=== PATIENT | female | born 1935 | race Caucasian/White ===

== ENCOUNTER 2019-07-13 22:04 | Observation (INO) | payer MEDICARE, SELFPAY ==
--- NOTE | ~2019-07-13 | XR_ITS ---
EXAMINATION: XR chest 1V portable INDICATION: Cough TECHNIQUE: Portable AP chest at 2304 hours COMPARISON: None available FINDINGS: There is scarring in the lung apices. The lungs are free of acute opacities. There is no pl eural effusion or pneumothorax. The cardiomediastinal silhouette is normal for technique. IMPRESSION: 1. No acute cardiopulmonary abnormality. Reviewed, dictated and finalized at location A.
--- NOTE | ~2019-07-13 | CT_ITS ---
EXAMINATION: CT brain wo con INDICATION: Headache COMPARISON: None TECHNIQUE: Standard unenhanced head CT. The dose-length product (DLP) was 681.00 mGy-cm. The mA was a djusted according to patient size. Iterative reconstruction technique was employed. FINDINGS: There is no acute intraparenchymal hemorrhage. No evidence of mass lesion. No evidence of a cute infarction. 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 There is mild periventricular and subcortical hypodensity probably related to small vessel ischemic disease. There is mild prominence o f the sulci and ventricles related to cerebral atrophy. Intracranial calcified cerebral atheroscleros is is noted. There are no extra-axial collections. There is no mass effect or midline shift. The orbi ts and soft tissues are unremarkable. The visualized sinuses and mastoid air cells are well aerated. Fibers seen of the posterior C1 ring is incidentally noted. IMPRESSION: 1. Areas of prior infarction without acute intracranial abnormality. 2. Age related findings. Reviewed, dictated and finalized at location A.
[2019-07-13 22:20] VITALS: BP 133/63; PULSE 80; RESP 20; TEMP 38.6; O2SAT 96
--- NOTE | 2019-07-13 22:25 | ECG_ITS ---
Measurements Intervals [place] Rate: 78 P: 58 [place]: 134 QRS: 28 QRSD: 83 T: 9 QT: 392 QTc: 447 Interpretive Statements SINUS RHYTHM WITH MARKED SINUS ARRHYTHMIA NONSPECIFIC T-WAVE ABNORMALITY- INFERIOR LEADS BASELINE ARTIFACT- I, II, III, AVR, AVL, V1, V3 BORDERLINE ECG Electronically Signed On 07-14-2019 7:07:19 CDT by Ronald Lyon D.O.
--- NOTE | 2019-07-13 22:34 | ED.WEAKNESS ---
HPI - Weakness General Chief complaint: Weakness Stated complaint: weak Time Seen by Provider: 07/13/19 22:20 Source: RN notes reviewed History of Present Illness HPI Narrative: Patient presents emergency department from home for weakness. Patient states that she was feeling fine until approximately 2:30 PM this afternoon when she began to feel really cold. States that following that she began to have weakness and was having difficulty getting out of her lazy boy. States that later she went out to check her crook and fell outside but denies any injury. She denies having any known fevers or chills at home rhinorrhea sore throat cough chest pain abdominal pain nausea vomiting diarrhea or any other symptoms. Related Data Allergies Allergy/AdvReac Type Severity Reaction Status Date / Time acetaminophen Allergy Severe NERVOUSNESS Verified 07/13/19 22:25 Review of Systems Review of Systems: Narrative: Gen.: Denies fevers or chills Eyes: Denies eye pain or visual change ENT: Denies congestion Respiratory: Denies shortness of breath or cough CV: Denies chest pain or palpitations GI: Denies abdominal pain nausea, emesis or diarrhea denies burning, urgency, frequency or hematuria Musculoskeletal: Denies back pain or muscle pain Neuro: Denies numbness, tingling, reports weakness Skin: Denies rash Except as documented, all other systems reviewed and negative [facility] Past Medical History Medical History (Updated 07/14/19 @ 01:16 by Chacho Garcia DO) Patient denies significant medical history Social History Social History (Updated 07/13/19 @ 22:35 by Chacho Garcia DO) Smoking status: Never smoker Gender identity (if verbalized by the patient): Female Exam Narrative: Exam Narrative: APPEARANCE: No acute distress, nontoxic, resting in bed EYES: EOMI HEENT: Normocephalic, atraumatic, OMM RESPIRATORY: No respiratory distress Clear to auscultation bilaterally with no rhonchi wheezing or rales. CARDIOVASCULAR: Regular rate and rhythm without murmurs rubs or gallops. ABDOMINAL: Soft, nontender, nondistended, no rebound or guarding MUSCULOSKELETAl: Moves all extremities. No clubbing, cyanosis or edema. NEURO: Awake and alert x 3. Following commands, speech normal, no focal deficits SKIN:: Warm, dry. No rashes lesions or abrasions PSYCHIATRIC: Normal affect/mood, Course Course Emergency Course: Discussed with patient current fever. She states she cannot take Tylenol or ibuprofen. States the only thing she can take for fever is aspirin Discussed with Dr. Alvarez presentation and work-up. Agrees with admission at this time Discussed with patient and family results of workup and diagnosis. Discussed need for admission. Patient and family understand and agree to current treatment plan Vital Signs Vital signs: Vital Signs Temperature 101.4 F H 07/13/19 22:20 Pulse Rate 80 07/13/19 22:20 Respiratory Rate 20 07/13/19 22:20 Blood Pressure 133/63 07/13/19 22:20 Pulse Oximetry 96 07/13/19 22:20 Temperature 98.1 F 07/14/19 00:24 Pulse Rate 76 07/14/19 00:24 Respiratory Rate 20 07/14/19 00:24 Blood Pressure 101/45 L 07/14/19 00:24 Pulse Oximetry 97 07/14/19 00:24 MDM - Weakness Lab Data Result diagrams: 07/13/19 22:41 07/13/19 22:41 Labs: Lab Results 07/13/19 07/13/19 07/13/19 Range/Units 22:39 22:41 22:41 WBC 13.0 H (4.5-10.0) K/mm3 RBC 3.90 L (4.2-5.4) M/mm3 Hgb 11.3 L (12.0-15.0) g/dL Hct 34.8 L (37.0-47.0) % MCV 89.2 (80-100) fl MCH 29.0 (26-34) pg MCHC 32.5 (32-36) g/dl RDW 14.2 (11.5-14.5) % Plt Count 205 (150-375) k/mm3 MPV 9.7 (7.4-10.4) fl Immature Gran % (Auto) 0.5 (0-0.5) % Neut % (Auto) 89.6 H (45.5-73.1) % Lymph % (Auto) 3.2 L (18.3-44.2) % [place] % (Auto) 6.5 (2.6-8.5) % Eos % (Auto) 0.0 (0-4.4) % Baso % (Auto) 0.2 (0.2-1.2) % Lymph # (Auto) 0.42
[2019-07-13 22:47] LABS: Basophils Percent Auto 0.2 % (0.2-1.2); Hematocrit 34.8 % (37.0-47.0); Hemoglobin 11.3 g/dL (12.0-15.0); Immature Granulocyte Absolute 0.07 K/mm3 (0.00-0.031); Immature Granulocyte Percent A 0.5 % (0-0.5); Lymphocytes Absolute Auto 0.42 K/mm3 (0.9-3.2); Lymphocytes Percent Auto 3.2 % (18.3-44.2); Mean Corpuscular HGB Conc 32.5 g/dl (32-36); Mean Corpuscular Volume 89.2 fl (80-100); Mean Platelet Volume 9.7 fl (7.4-10.4); Monocytes Absolute Auto 0.9 K/mm3 (0.1-0.6); Monocytes Percent Auto 6.5 % (2.6-8.5); Neutrophils Absolute Auto 11.7 K/mm3 (1.3-6.7); Neutrophils Percent Auto 89.6 % (45.5-73.1); Platelet Count Result 205 k/mm3 (150-375); Red Cell Distribution Width 14.2 % (11.5-14.5)
[2019-07-13 22:57] LABS: Prothrombin Time 13.3 Seconds (11.1-14.7)
[2019-07-13 22:58] LABS: Alanine Aminotransferase 14 U/L (4-35); Albumin Level 3.9 g/dL (3.5-5.1); Alkaline Phosphatase 100 U/L (38-126); Aspartate Amino Transferase 26 U/L (14-36); Bilirubin,Total 0.4 mg/dL (0.2-1.3); Blood Urea Nitrogen 18 mg/dL (7-17); Calcium 8.7 mg/dL (8.4-10.2); Carbon Dioxide 25 mmol/L (22-30); Chloride 104 mmol/L (98-107); Estimated CRCL calculation 36 ml/min; Estimated Glomerular Filt Rate 60; Glucose 139 mg/dL (65-105); Potassium 3.4 mmol/L (3.4-5.0); Sodium 134 mmol/L (137-145)
[2019-07-13 22:58] LABS: Partial Thromboplastin Time 26.4 SECONDS (22.3-36.8)
--- NOTE | 2019-07-13 23:09 | PC.NURSE ---
Patient in radiology.
[2019-07-13] MEDS: ASPIRIN 81 MG CHEWABLE TABLET 324 MG PO (23:12)
--- NOTE | 2019-07-13 23:34 | PC.NURSE ---
Patient aware of need for urine specimen, patient refusing straight cath at this time.
[2019-07-13 23:40] LABS: Lactic Acid Reflex 0.9 mmol/L (0.7-2.1)
[2019-07-14 00:24] VITALS: BP 101/45; PULSE 76; RESP 20; TEMP 36.7; O2SAT 97
[2019-07-14] MEDS: SODIUM CHLORIDE 0.9% IV 1,000 ML 999 ML IV CONT (00:25)
[2019-07-14 00:46] LABS: Add Urine Microscopic? YES; Appearance Urine Cloudy (Clear); Bacteria Urine 4+ /hpf; Bilirubin Urine Negative (Negative); Blood Urine 3+ (Negative); Color Urine Yellow (Yellow); Glucose Urine UA Negative (Negative); Ketones Urine Trace mg/dL (Negative); Leukocyte Esterase Ur 2+ LEU/UL (Negative); Mucus Urine Few /lpf; Nitrate Urine Positive (Negative); Protein Urine 1+ mg/dL (Negative); Squamous Epithelial Cell Urine Many /hpf (Few); Urobilinogen Urine Negative mg/dL (<2.0); WBC Urine 31-50 /hpf
[2019-07-14 01:59] VITALS: BP 116/69; PULSE 75; RESP 20; TEMP 36.7; O2SAT 96
[2019-07-14 02:05] VITALS: BP 111/54; PULSE 71; RESP 18; TEMP 36.7; O2SAT 95; BMI 19.9
--- NOTE | 2019-07-14 02:05 | ADMGEN ---
This patient, Cathy Mcgee, was admitted to 3 [facility] Surg Room 300-01. Patient/family oriented to hospital policies and general routines including ID bracelet, bed and alarms, visiting hours, pain management, procedures, bathroom and other care routines, personal items, smoking policy, room service/diet, and visiting hours. Valuables list has been completed. Information on how to activate the Rapid Response Team has been discussed. Patient/Family are encouraged to report perceived risks to care and to ask questions if they do not understand what they are told or what they should do.
[2019-07-14] MEDS: SODIUM CHLORIDE 0.9% IV 1,000 ML 100 ML IV CONT (02:14)
[2019-07-14 05:56] VITALS: BP 105/51; PULSE 85; RESP 18; TEMP 36.9; O2SAT 97
[2019-07-14 08:36] LABS: Basophils Percent Auto 0.1 % (0.2-1.2); Hematocrit 31.5 % (37.0-47.0); Hemoglobin 10.2 g/dL (12.0-15.0); Immature Granulocyte Absolute 0.07 K/mm3 (0.00-0.031); Immature Granulocyte Percent A 0.7 % (0-0.5); Lymphocytes Absolute Auto 0.59 K/mm3 (0.9-3.2); Lymphocytes Percent Auto 6.3 % (18.3-44.2); Mean Corpuscular HGB Conc 32.4 g/dl (32-36); Mean Corpuscular Hemoglobin 28.6 pg (26-34); Mean Corpuscular Volume 88.2 fl (80-100); Mean Platelet Volume 9.8 fl (7.4-10.4); Monocytes Absolute Auto 0.6 K/mm3 (0.1-0.6); Monocytes Percent Auto 6.5 % (2.6-8.5); Neutrophils Absolute Auto 8.1 K/mm3 (1.3-6.7); Neutrophils Percent Auto 86.4 % (45.5-73.1); Platelet Count Result 179 k/mm3 (150-375); Red Blood Count 3.57 M/mm3 (4.2-5.4); Red Cell Distribution Width 14.3 % (11.5-14.5); White Blood Count 9.4 K/mm3 (4.5-10.0)
[2019-07-14 08:55] LABS: Blood Urea Nitrogen 15 mg/dL (7-17); Calcium 7.8 mg/dL (8.4-10.2); Carbon Dioxide 24 mmol/L (22-30); Chloride 108 mmol/L (98-107); Estimated CRCL calculation 39 ml/min; Estimated Glomerular Filt Rate > 60; Glucose 92 mg/dL (65-105); Potassium 3.6 mmol/L (3.4-5.0); Sodium 136 mmol/L (137-145)
--- NOTE | 2019-07-14 09:23 | PM.IMHP ---
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 Patient states that she has been having difficulty getting out of her recliner starting at roughly 2:30 pm the day of presentation, stating she needed her and his cane for assistance. Later in the day, she reports adamantly that she did not fall, but was squatting while gardening, and slowly lowered onto her buttocks. She states her was concerned that he could not help her up which prompted him to take her to the ER. Denies any other recent falls. No reports of loss of consciousness; no acute injury from the fall. She states she merely lost her balance. She did report one episode of chills yesterday afternoon, but no reports of fever; in fact, she notes that her temperature was 90.2 yesterday while at home; she confirms this temperature reading when asked again. She denies any other complaints at the moment. In fact, patient is asking when she can go home, stating I feel fine . When specifically asked, denies current f/c/s, myalgias/arthralgias, headaches, dizziness, lightheadedness, changes in v/h, cp/palpitations, sob/cough, n/v/d/c, abd pain, changes in BMs, melena, BRBPR, dysuria, hematuria, cloudy urine, calf pain/swelling, one side arm/leg weakness, slurred speech, facial droop. While in the ER, UA showed cloudy urine, positive nitrates, 2+ leuk est, 31-50 WBC, 4+ bacteria, although showed many squamous epithelial cells. VS showed temp of 101.4, BP 133/63, HR 80, RR 20, and sat 96% RA. Initial CBC showed WBC of 13.0k. Patient being admitted under the setting of technically septic with temp of 101.4 and leukocytosis with UTI suspected source of infection. Review of Systems Review of Systems: All systems reviewed & are unremarkable except as noted in HPI and below PMFSH Past Medical History Medical History History of squamous cell carcinoma Patient denies significant medical history Surgical History Surgical History History of surgical removal of skin lesion Right knee; squamous cell carcinoma per patient Family History Family History Other Unknown family medical history Social History Social History (Updated 07/14/19 @ 17:18 by Kentrell Richard PA-C) Social History: Patient lives at home with , Amadeo, whom she designates as surrogate medical decision maker. Her PCP is Dr. Conte. She wishes to be listed as a Full Code Smoking packs per day: 0.25 Smoking cigarettes per day: 5.0 Years smoked: 66 Smoking pack-years: 16.50 Smoking status: Current some day smoker Tobacco type: cigarettes Second hand tobacco smoke exposure: Yes Alcohol intake: current Drinks per week: 1 Substance use: never Gender identity (if verbalized by the patient): Female Spiritual care concerns: No Meds Home Medications and Allergies Home Medications Medication Instructions Recorded Confirmed Type No Home Medications 07/14/19 07/14/19 History Allergies Allergy/AdvReac Type Severity Reaction Status Date / Time acetaminophen AdvReac Mild Shakiness Verified 07/14/19 02:20 ibuprofen AdvReac Mild Shakiness Verified 07/14/19 02:20 Vital Signs Vital Signs - 24 hr 07/13/19 22:20 07/14/19 00:24 07/14/19 01:59 Temperature 101.4 F H 98.1 F 98.1 F Pulse Rate 80 76 75 Respiratory Rate 20 20 20 Blood Pressure 133/63 101/45 L 116/69 Pulse Oximetry 96 97 96 07/14/19 02:05 07/14/19 05:56 Temperature 98.0 F 98.4 F Pulse Rate 71 85 Respiratory Rate 18 18 Blood Pressure 111/54 L 105/51 L Pulse Oximet
[2019-07-14] MEDS: SODIUM CHLORIDE 0.9% IV 1,000 ML 75 ML IV CONT (12:55)
[2019-07-14 14:41] VITALS: BP 120/45; PULSE 61; RESP 20; TEMP 38; O2SAT 96
[2019-07-14 22:00] VITALS: BP 118/41; PULSE 69; RESP 18; TEMP 37.4; O2SAT 94
[2019-07-15] MEDS: SODIUM CHLORIDE 0.9% IV 1,000 ML 75 ML IV CONT (05:50)
[2019-07-15 06:00] VITALS: BP 110/42; PULSE 63; RESP 18; TEMP 36.5; O2SAT 97
[2019-07-15 06:08] LABS: Basophils Percent Auto 0.4 % (0.2-1.2); Eosinophils Percent Auto 0.2 % (0-4.4); Hematocrit 30.3 % (37.0-47.0); Hemoglobin 9.6 g/dL (12.0-15.0); Immature Granulocyte Absolute 0.02 K/mm3 (0.00-0.031); Immature Granulocyte Percent A 0.4 % (0-0.5); Lymphocytes Absolute Auto 0.74 K/mm3 (0.9-3.2); Lymphocytes Percent Auto 15.3 % (18.3-44.2); Mean Corpuscular HGB Conc 31.7 g/dl (32-36); Mean Corpuscular Hemoglobin 28.1 pg (26-34); Mean Corpuscular Volume 88.6 fl (80-100); Mean Platelet Volume 10.7 fl (7.4-10.4); Monocytes Absolute Auto 0.4 K/mm3 (0.1-0.6); Monocytes Percent Auto 8.3 % (2.6-8.5); Neutrophils Absolute Auto 3.7 K/mm3 (1.3-6.7); Neutrophils Percent Auto 75.4 % (45.5-73.1); Platelet Count Result 146 k/mm3 (150-375); Red Blood Count 3.42 M/mm3 (4.2-5.4); Red Cell Distribution Width 14.4 % (11.5-14.5); White Blood Count 4.8 K/mm3 (4.5-10.0)
[2019-07-15 06:38] LABS: Blood Urea Nitrogen 14 mg/dL (7-17); Calcium 7.9 mg/dL (8.4-10.2); Carbon Dioxide 23 mmol/L (22-30); Chloride 109 mmol/L (98-107); Estimated CRCL calculation 39 ml/min; Estimated Glomerular Filt Rate > 60; Glucose 85 mg/dL (65-105); Potassium 3.4 mmol/L (3.4-5.0); Sodium 135 mmol/L (137-145)
[2019-07-15 07:11] LABS: Platelet Estimate Adequate (Adequate); Rouleaux 1+ (NORMAL)
[2019-07-15] MEDS: POTASSIUM CHLORIDE 20 MEQ TABLET 40 MEQ PO (09:36)
--- NOTE | 2019-07-15 11:34 | PM.DS ---
DS: Admitting Diagnosis Admitting Diagnosis Admitting Diagnosis: Sepsis, unspecified organism DS: Discharge Diagnosis Discharge Diagnosis (1) Sepsis: Code(s): A41.9 - Sepsis, unspecified organism Status: Acute Assessment and Plan: With temp of 101.4 and Leukocytosis of 13.0k upon arrival and UTI as suspected source. Lactic acid WNL. Patient states she is feeling much better today. BC negative to date x 2. UC growing E. Coli; sensitivities pending. Afebrile since 07/13; VSS. Treated underlying suspected infection of UTI with empiric Rocephin; will continue with Cefdinir 300 mg PO BID and follow cultures after discharge IVF d/c Patient adamantly refuses Tylenol and ibuprofen as she has had similar reactions of shakiness and almost hallucinating with both medications in the past. (2) Acute UTI: Code(s): N39.0 - Urinary tract infection, site not specified Status: Acute Assessment and Plan: UA suggestive of UTI although squamous epithelial cells noted. UC growing E. coli; sensitivities pending. Rocephin IV during stay x 2 doses Will give one dose cefdnir 300 mg now; continue BID after discharge through 07/16 to complete 5 days total antibiotics Monitor UC after discharge (3) Gait instability: Code(s): R26.81 - Unsteadiness on feet Status: Acute Assessment and Plan: Patient adamant she did not fall, but rather, slowly sat on ground and could not get up with the help of her . Does not report any injury. She has been having weakness since the day of presentation. She feels back to baseline. 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 Patient noted having difficulty getting out of her recliner earlier that day. She then later sustained a fall onto her buttock while gardening and was unable to get up with the assistance of her ; her then decided to bring her to the ER for further evaluation. In the ER, she was found to have UA suspicous for possible UTI and had temp of 101.4 and luekocytosis of 13.0k, technically meeting sepsis criteria and admitted under this setting. Please see H&P for further details Presenting VS: Temp Pulse Resp BP Pulse Ox 101.4 F H 80 20 133/63 96 07/13/19 22:20 07/13/19 22:20 07/13/19 22:20 07/13/19 22:20 07/13/19 22:20 Presenting Pertinent labs: WBC 13.0k (07/14: 4.8). Lactic acid 0.9. UA showed yellow, cloudy urine, 1+ protein, 3+ blood, positive nitrate, 2+ leuk esterace, 6-10 RBC, 31-50 WBC, many squam epith cells, 4+ bacteria, few mucus. Initial CBC, chemistry, UA otherwise unremarkable. Micro: BCx negative to date x 2. UC grew E. coli, pansensitive Imaging: Head CT 07/13/19 23:11 IMPRESSION: 1. Areas of prior infarction without acute intracranial abnormality. 2. Age related findings Chest X-Ray 07/13/19 23:15 IMPRESSION: 1. No acute cardiopulmonary abnormality. ECG: Interpretive Statements SINUS RHYTHM WITH MARKED SINUS ARRHYTHMIA NONSPECIFIC T-WAVE ABNORMALITY- INFERIOR LEADS BASELINE ARTIFACT- I, II, III, AVR, AVL, V1, V3 BORDERLINE ECG Patient was admitted to the hospitalist service for further evaluation for UTI and treatment for meeting sepsis criteria. Patient given IVF and was started on IV Rocephin. This was
[2019-07-15] MEDS: CEFDINIR 300 MG CAPSULE PO (13:18)
== END 2019-07-15 13:45 | disposition home or self-care (01) ==
LOC: ANHED 07-14 01:16 → ANH3MEDSUR 07-14 01:23
PROVIDERS: Admitting Provider Internal Medicine; Emergency Provider Emergency Medicine; PCP Family Medicine; Visit Provider Physician Assistant
DX: A41.9 Sepsis, unspecified organism (principal); N39.0 Urinary tract infection, site not specified; B96.20 Unspecified Escherichia coli [E. coli] as the cause of diseases classified elsewhere; R26.81 Unsteadiness on feet; Z85.828 Personal history of other malignant neoplasm of skin; Z86.73 Personal history of transient ischemic attack (TIA), and cerebral infarction without residual deficits; F17.210 Nicotine dependence, cigarettes, uncomplicated
CPT/HCPCS: 36415; 70450; 71045; 80048; 80053; 81001; 83605; 83735; 85025; 85610; 85730; 87040; 87077; 87086; 87088; 87186; 93005; 96361; 96365; 96366; 97110; 97161; 97165; 99285; A9270; G0378; J0696; J7030

== ENCOUNTER 2019-10-23 14:24 | Emergency (ER) | payer MEDICARE, SELFPAY ==
[2019-10-23 14:47] VITALS: BP 131/43; PULSE 84; RESP 20; TEMP 37.8; O2SAT 99
--- NOTE | 2019-10-23 14:52 | ED.FEMALEGU ---
HPI - Female Genitourinary General Chief complaint: Urogenital-Female Stated complaint: fever/shakes Source: patient Mode of arrival: wheelchair Limitations: no limitations History of Present Illness HPI Narrative: Patient is an 84-year-old female who presents with for complaints of possible UTI. Patient reports fever x1 day and increased weakness. Patient reports same symptoms as UTI in June. She reports urinary frequency, denies dysuria or hematuria. Patient's reports taking patient to [place] ED and reports leaving because of weight times. Patient is alert and oriented and in no acute distress at this time. MD elicited complaint: UTI Related Data Allergies Allergy/AdvReac Type Severity Reaction Status Date / Time acetaminophen AdvReac Mild Shakiness Verified 10/23/19 14:47 ibuprofen AdvReac Mild Shakiness Verified 10/23/19 14:47 Review of Systems Review of Systems: Narrative: CONSTITUTIONAL: Reports fever, denies chills or sweats. EYES: Denies visual changes, redness, or discharge. ENT: Denies rhinorrhea, congestion, sore throat, or otalgia. CARDIOVASCULAR: Denies chest pain, palpitations, or edema. RESPIRATORY: Denies cough or dyspnea. GASTROINTESTINAL: Denies abdominal pain, nausea, vomiting, or diarrhea. GENITOURINARY: Denies dysuria or hematuria. Reports frequency SKIN: Denies rash or itching. MUSCULOSKELETAL: Denies back pain, joint pain, or myalgia. NEUROLOGIC: Denies headache, numbness, dizziness, or weakness. PSYCHIATRIC: Denies anxiety or depression. [facility] Past Medical History Medical History History of squamous cell carcinoma Patient denies significant medical history Surgical History Surgical History History of surgical removal of skin lesion Right knee; squamous cell carcinoma per patient Family History Family History Other Unknown family medical history Social History Social History Social History: Patient lives at home with , Amadeo, whom she designates as surrogate medical decision maker. Her PCP is Dr. Conte. She wishes to be listed as a Full Code Smoking packs per day: 0.25 Smoking cigarettes per day: 5.0 Years smoked: 66 Smoking pack-years: 16.50 Smoking status: Current some day smoker Tobacco type: cigarettes Second hand tobacco smoke exposure: Yes Alcohol intake: current Drinks per week: 1 Substance use: never Gender identity (if verbalized by the patient): Female Spiritual care concerns: No Exam Narrative: Exam Narrative: GENERAL: Well-appearing, well-nourished, and in no acute distress. HEAD: Normocephalic, atraumatic. EYES: EOMI. No redness or drainage. Conjunctiva are normal. ENT: Mucous membranes pink and moist. CHEST: No respiratory distress. Clear to auscultation. HEART: Regular rate and rhythm. No murmur appreciated. Normal peripheral pulses. EXTREMITIES: Normal range of motion. No edema. SKIN: Warm, dry, no rash. NEURO: No focal deficits. Alert and oriented x3. Gait steady. PSYCH: Normal affect. No signs of depression or anxiety. Course Vital Signs Vital signs: Vital Signs Temperature 37.8 C H 10/23/19 14:47 Pulse Rate 84 10/23/19 14:47 Respiratory Rate 10/23/19 14:47 Blood Pressure 131/43 L 10/23/19 14:47 Pulse Oximetry 99 10/23/19 14:47 Temperature 37.8 C H 10/23/19 14:47 Pulse Rate 84 10/23/19 14:47 Respiratory Rate 20 10/23/19 14:47 Blood Pressure 131/43 L 10/23/19 14:47 Pulse Oximetry 99 10/23/19 14:47 Reviewed. Patient has been instructed to follow-up with her PCP regarding her blood pressure. MDM - Female Genitourinary MDM Narrative Medical decision making narrative: Patient UA is positive for nitrates, blood and leukocytes. Patient has suspe
[2019-10-23 15:20] VITALS: TEMP 39.4
== END 2019-10-23 15:22 | disposition home or self-care (01) ==
PROVIDERS: Emergency Provider Nurse Practitioner; PCP Family Medicine
DX: N39.0 Urinary tract infection, site not specified (principal); F17.210 Nicotine dependence, cigarettes, uncomplicated; Z85.828 Personal history of other malignant neoplasm of skin
CPT/HCPCS: 81003; 87077; 87086; 87088; 87186; 99213; G0463

== ENCOUNTER 2019-10-23 16:02 | Observation (INO) | payer MEDICARE, SELFPAY ==
--- NOTE | ~2019-10-23 | CT_ITS ---
EXAMINATION: CT brain wo con DATE: 10/23/2019 17:39 INDICATION: Altered mental status. Confusion. TECHNIQUE: Computed tomography (CT) of the head was performed without intravenous contrast. The dose- length product was 756.67 mGy-cm. Automated exposure control and iterative reconstruction technique w ere employed. COMPARISON: CT dated 07/13/2019 FINDINGS: Generalized atrophy. 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 No ventriculomegaly or midline shift. No acute intracranial hemorrhage, infarction, mass or mass effect. Paranasal sinuse s and mastoids are pneumatized. IMPRESSION: 1. No acute intracranial abnormality. 2: Chronic age-related findings. Reviewed, dictated and finalized at location A.
--- NOTE | ~2019-10-23 | XR_ITS ---
EXAMINATION: XR chest 1V portable 10/23/2019 17:44 INDICATION: Weakness and UTI PROCEDURE: AP portable chest COMPARISON: 07/13/2019 FINDINGS: The lungs are clear. The lungs are hyperinflated which is consistent with, but not diagnost ic of chronic obstructive pulmonary disease. The cardiomediastinal silhouette is within normal limit s. There are no pleural effusions. There is no pneumothorax suspected. IMPRESSION: 1: NO ACUTE CARDIOPULMONARY DISEASE. Reviewed, dictated and finalized at location A.
--- NOTE | 2019-10-23 16:09 | ECG_ITS ---
Measurements Intervals [place] Rate: 80 P: 80 [place]: 130 QRS: 48 QRSD: 84 T: -47 QT: 375 QTc: 435 Interpretive Statements SINUS RHYTHM NONSPECIFIC ST & T-WAVE ABNORMALITY- INF/LAT LEADS BASELINE ARTIFACT- I, II, III, AVR, AVL, AVF, V1-V6 BORDERLINE ECG Electronically Signed On 10-24-2019 7:18:10 CDT by Ronald Lyon D.O.
[2019-10-23 16:16] VITALS: BP 143/70; PULSE 80; RESP 19; TEMP 37.8; O2SAT 96
--- NOTE | 2019-10-23 16:20 | ED.GENADULT ---
HPI - General Adult General Chief complaint: Urogenital-Female Stated complaint: gen weakness/fever Time Seen by Provider: 10/23/19 16:09 Source: RN notes reviewed History of Present Illness HPI narrative: Patient presents to emergency department from urgent care via EMS for weakness.. Patient states that this a.m. she began to feel weak and run a low-grade fever. Patient gone to the urgent care this afternoon was diagnosed with a UTI. When they got out of the car the patient was too weak to get into the car and EMS had been called. Patient did have a fever at the urgent care however she stated that she cannot take Tylenol or ibuprofen as she is allergic to both these not receiving thing for fever. She denies any chest pain shortness of breath abdominal pain nausea vomiting or any other symptoms Related Data Allergies Allergy/AdvReac Type Severity Reaction Status Date / Time acetaminophen AdvReac Mild Shakiness Verified 10/23/19 14:47 ibuprofen AdvReac Mild Shakiness Verified 10/23/19 14:47 Review of Systems Review of Systems: Narrative: Gen.: Reports fever Eyes: Denies eye pain or visual change ENT: Denies congestion Respiratory: Denies shortness of breath or cough CV: Denies chest pain or palpitations GI: Denies abdominal pain nausea, emesis or diarrhea reports diagnosis of UTI today Musculoskeletal: Denies back pain or muscle pain Neuro:eports weakness Skin: Denies rash Except as documented, all other systems reviewed and negative [facility] Past Medical History Medical History History of squamous cell carcinoma Patient denies significant medical history Social History Social History Social History: Patient lives at home with , Amadeo, whom she designates as surrogate medical decision maker. Her PCP is Dr. Conte. She wishes to be listed as a Full Code Smoking packs per day: 0.25 Smoking cigarettes per day: 5.0 Years smoked: 66 Smoking pack-years: 16.50 Smoking status: Current some day smoker Tobacco type: cigarettes Second hand tobacco smoke exposure: Yes Alcohol intake: current Drinks per week: 1 Substance use: never Gender identity (if verbalized by the patient): Female Spiritual care concerns: No Exam Narrative: Exam Narrative: APPEARANCE: No acute distress, nontoxic, resting in bed EYES: EOMI HEENT: Normocephalic, atraumatic, OMM RESPIRATORY: No respiratory distress Clear to auscultation bilaterally with no rhonchi wheezing or rales. CARDIOVASCULAR: Regular rate and rhythm without murmurs rubs or gallops. ABDOMINAL: Soft, nontender, nondistended, no rebound or guarding MUSCULOSKELETAl: Moves all extremities. No clubbing, cyanosis or edema. NEURO: Awake and alert x 3. Following commands, speech normal, no focal deficits SKIN:: Warm, dry. No rashes lesions or abrasions PSYCHIATRIC: Normal affect/mood, Course Course Emergency Course: Reviewed old records. The patient cannot take acetaminophen or ibuprofen but she cannot take aspirin for fever Reviewed records from urgent care with positive group at that time. Current UA does show positive nitrate. Suspect UTI at this time will treat with Rocephin Discussed with REA Hutchison for Dr. Ramsey presentation work-up. Agrees with admission at this time Discussed with patient and family results of workup and diagnosis. Discussed need for admission. Patient and family understand and agree to current treatment plan Vital Signs Vital signs: Vital Signs Temperature 100.1 F H 10/23/19 16:16 Pulse Rate 80 10/23/19 16:16 Respiratory Rate 19 10/23/19 16:16 Blood Pressure 143/70 H 10/23/19 16:16 Pulse Oximetry 96 10/23/19 16:16 Temperature 100.1 F H 10/23/19 16:16 Pulse Rate 86 10/23/19 17:46 Respiratory Rate 29 H 10/23/19 17:46 Blood Pressure 135/74 10/23/19 17:46 Pulse Oximetry 97 10/23/19 17:46
[2019-10-23 16:37] LABS: Hematocrit 37.1 % (37.0-47.0); Hemoglobin 12.1 g/dL (12.0-15.0); Mean Corpuscular HGB Conc 32.6 g/dl (32-36); Mean Corpuscular Hemoglobin 29.1 pg (26-34); Mean Corpuscular Volume 89.2 fl (80-100); Mean Platelet Volume 9.9 fl (7.4-10.4); Platelet Count Result 196 k/mm3 (150-375); Red Blood Count 4.16 M/mm3 (4.2-5.4); Red Cell Distribution Width 14.8 % (11.5-14.5); White Blood Count 12.3 K/mm3 (4.5-10.0)
[2019-10-23 16:49] LABS: Alanine Aminotransferase 22 U/L (4-35); Albumin Level 3.9 g/dL (3.5-5.1); Alkaline Phosphatase 86 U/L (38-126); Anion Gap 9 mmol/L (8-16); Aspartate Amino Transferase 31 U/L (14-36); Bilirubin,Total 0.2 mg/dL (0.2-1.3); Blood Urea Nitrogen 19 mg/dL (7-17); Calcium 8.5 mg/dL (8.4-10.2); Carbon Dioxide 25 mmol/L (22-30); Chloride 103 mmol/L (98-107); Estimated CRCL calculation 29 ml/min; Estimated Glomerular Filt Rate 53; Glucose 129 mg/dL (65-105); Lactic Acid Reflex 0.9 mmol/L (0.7-2.1); Potassium 4.2 mmol/L (3.4-5.0); Sodium 137 mmol/L (137-145)
[2019-10-23] MEDS: SODIUM CHLORIDE 0.9% IV 1,000 ML 999 ML IV CONT (16:58)
[2019-10-23] MEDS: ASPIRIN 81 MG CHEWABLE TABLET 324 MG PO (16:58)
[2019-10-23 17:00] LABS: Anisocytosis 2+ (NORMAL); Band Neutrophils Percent 18 % (0-6); Lymphocytes Absolute Manual 0.36 K/mm3 (1.1-4.5); Monocytes Absolute Manual 0.36 K/mm3 (0.1-0.90); Monocytes Percent Manual 3 % (3-9); Neutrophils Absolute Manual 11.56 K/mm3 (1.7-7.2); Neutrophils Percent Manual 76 % (46-73); Platelet Estimate Adequate (Adequate); Total Cells Counted 100
[2019-10-23 17:16] LABS: Add Urine Microscopic? YES; Appearance Urine Cloudy (Clear); Bilirubin Urine Negative (Negative); Blood Urine 1+ (Negative); Color Urine Yellow (Yellow); Glucose Urine UA Negative (Negative); Ketones Urine Negative (Negative); Leukocyte Esterase Ur Negative LEU/UL (Negative); Mucus Urine Rare /lpf; Nitrate Urine Positive (Negative); Protein Urine 1+ mg/dL (Negative); Squamous Epithelial Cell Urine Few /hpf (Few); WBC Urine 0-3 /hpf
[2019-10-23 17:46] VITALS: BP 135/74; PULSE 86; RESP 29; O2SAT 97
[2019-10-23 19:14] VITALS: BP 134/63; PULSE 75; RESP 23; O2SAT 96
--- NOTE | 2019-10-23 19:35 | ADMGEN ---
This patient, Cathy Mcgee, was admitted to Medical Room 342-01. Patient/family oriented to hospital policies and general routines including ID bracelet, bed and alarms, visiting hours, pain management, procedures, bathroom and other care routines, personal items, smoking policy, room service/diet, and visiting hours. Valuables list has been completed. Information on how to activate the Rapid Response Team has been discussed. Patient/Family are encouraged to report perceived risks to care and to ask questions if they do not understand what they are told or what they should do.
[2019-10-23 19:40] VITALS: BMI 18.6
[2019-10-23] MEDS: SODIUM CHLORIDE 0.9% IV 1,000 ML 80 ML IV CONT (19:55)
[2019-10-23 21:59] VITALS: BP 119/67; PULSE 80; RESP 18; TEMP 37.1; O2SAT 96
[2019-10-24 01:26] VITALS: TEMP 38.4
[2019-10-24] MEDS: ASPIRIN 325 MG ENTERIC TABLET PO (02:24)
--- NOTE | 2019-10-24 03:15 | PM.IMHP ---
H&P: HPI History of Present Illness Date/Time: 10/24/19 03:15 Chief complaint: UTI/weakness/gait instability Narrative: This is an 84 year old female who presented to the hospital with a complaint of fever and weakness. The patient denies any cough, chest pain, shortness of breath, abdominal pain, dysuria, hematuria or other symptoms. She was referred to the hospital from urgent care after she was found to have a fever there. The patient was evaluated in the ER and urinalysis demonstrated nitrates+. She was started on Ceftriaxone IV for a presumed UTI. She has various excoriations and small wounds on her legs and back which she can't explain where they came from. She seems to be alert and oriented to person, place and time. She has no other complaints tonight. Review of Systems Review of Systems: All systems reviewed & are unremarkable except as noted in HPI and below PMFSH Past Medical History Medical History History of squamous cell carcinoma Patient denies significant medical history Surgical History Surgical History History of surgical removal of skin lesion Right knee; squamous cell carcinoma per patient Family History Family History Other Unknown family medical history Social History Social History Social History: Patient lives at home with , Amadeo, whom she designates as surrogate medical decision maker. Her PCP is Dr. Conte. She wishes to be listed as a Full Code Smoking packs per day: 0.25 Smoking cigarettes per day: 5.0 Years smoked: 66 Smoking pack-years: 16.50 Smoking status: Current every day smoker Tobacco type: cigarettes Second hand tobacco smoke exposure: Yes Alcohol intake: current Drinks per week: 1 Substance use: never Gender identity (if verbalized by the patient): Female Sexual Orientation (if Verbalized by the Patient): Straight or Heterosexual Spiritual care concerns: No Meds Home Medications and Allergies Home Medications Medication Instructions Recorded Confirmed Type No Home Medications 10/23/19 10/23/19 History Allergies Allergy/AdvReac Type Severity Reaction Status Date / Time acetaminophen AdvReac Mild Shakiness Verified 10/23/19 22:44 ibuprofen AdvReac Mild Shakiness Verified 10/23/19 22:44 Vital Signs Vital Signs - 24 hr 10/23/19 16:16 10/23/19 17:46 10/23/19 19:14 Temperature 37.8 C H Pulse Rate 80 86 75 Respiratory Rate 19 29 H 23 H Blood Pressure 143/70 H 135/74 134/63 Pulse Oximetry 96 97 96 10/23/19 21:59 10/24/19 01:26 Temperature 37.1 C 38.4 C H Pulse Rate 80 Respiratory Rate 18 Blood Pressure 119/67 Pulse Oximetry 96 Exam Const: General: cooperative, alert and awake Nutritional Appearance: thin Orientation/consciousness: patient oriented x3 HENMT: Head: normal to inspection General nose exam: Normal external nose present Face and sinus: normal facial exam Mouth: Yes Normal oral and palatal mucosa present and Yes oropharynx normal Eyes: Pupils: Equal, round and reactive pupils present EOM: EOMs intact bilaterally Neck: Neck: supple and no JVD Thyroid: thyroid normal Lymphatic: lymphadenopathy not noted Resp: Effort & Inspection: normal respiratory effort Auscultation: clear to auscultation bilaterally Cardio: Rate: regular rate Rhythm: regular rhythm Heart sounds: no murmurs GI: Inspection: normal to inspection Auscultation: normal bowel sounds Skin: General skin exam: erythema (Right ankle++ ) and excoriation (on legs and back++ ) Neuro: General: patient oriented x3 Cranial nerves: Yes CN's II-XII intact bilaterally and Yes Equal, round and reactive pupils present Speech: normal speech Motor exam (neuro): 5/5 motor strength present throughout Sensory Exam: no
[2019-10-24 06:00] VITALS: BP 106/44; PULSE 69; RESP 16; TEMP 36.9; O2SAT 96
[2019-10-24 06:19] LABS: Basophils Percent Auto 0.2 % (0.2-1.2); Hematocrit 32.5 % (37.0-47.0); Hemoglobin 10.6 g/dL (12.0-15.0); Immature Granulocyte Absolute 0.07 K/mm3 (0.00-0.031); Immature Granulocyte Percent A 0.7 % (0-0.5); Lymphocytes Absolute Auto 0.74 K/mm3 (0.9-3.2); Lymphocytes Percent Auto 7.1 % (18.3-44.2); Mean Corpuscular HGB Conc 32.6 g/dl (32-36); Mean Corpuscular Volume 88.8 fl (80-100); Mean Platelet Volume 10.6 fl (7.4-10.4); Monocytes Absolute Auto 0.5 K/mm3 (0.1-0.6); Monocytes Percent Auto 5.1 % (2.6-8.5); Neutrophils Absolute Auto 9.1 K/mm3 (1.3-6.7); Neutrophils Percent Auto 86.9 % (45.5-73.1); Platelet Count Result 166 k/mm3 (150-375); Red Blood Count 3.66 M/mm3 (4.2-5.4); White Blood Count 10.4 K/mm3 (4.5-10.0)
[2019-10-24 06:43] LABS: Anion Gap 5 mmol/L (8-16); Blood Urea Nitrogen 16 mg/dL (7-17); Calcium 7.8 mg/dL (8.4-10.2); Carbon Dioxide 23 mmol/L (22-30); Chloride 108 mmol/L (98-107); Estimated CRCL calculation 31 ml/min; Estimated Glomerular Filt Rate 53; Glucose 96 mg/dL (65-105); Potassium 3.4 mmol/L (3.4-5.0); Sodium 136 mmol/L (137-145)
[2019-10-24 08:00] VITALS: PULSE 69; RESP 16; O2SAT 96
[2019-10-24] MEDS: SODIUM CHLORIDE 0.9% IV 1,000 ML 80 ML IV CONT (08:52)
[2019-10-24] MEDS: POTASSIUM CHLORIDE 20 MEQ TABLET PO (08:52)
[2019-10-24 14:00] VITALS: BP 120/53; PULSE 67; RESP 16; TEMP 37.1; O2SAT 97
--- NOTE | 2019-10-24 15:57 | PM.DS ---
DS: Admitting Diagnosis Admitting Diagnosis Admitting Diagnosis: UTI/weakness/gait instability DS: Discharge Diagnosis Discharge Diagnosis (1) Abnormal urinalysis: Code(s): R82.90 - Unspecified abnormal findings in urine Status: Acute Assessment and Plan: Date of Service is 10/24/19 Ms. Mcgee is a pleasant 84yo F who presented to the ER for evaluation of generalized weakness. She described that earlier yesterday she went to urgent care for evaluation of urinary symptoms, was diagnosed with a UTI and was sent a prescription for antibiotics. Once she returned home, she was feeling very weak and EMS was activated. Tells me she did not fall or pass out. On arrival here, workup included CT brain which showed no acute intracranial findings and a chest XR with no acute cardiopulmonary findings. Routine labs demonstrated a mild leukocytosis, mild hyponatremia and hypocalcemia. Urine culture grew pansensitive E coli. PT/OT evaluations found her to have issues with balance. Home health or outpatient therapy was recommended, patient declined. After some discussion, she was agreeable to letting care coordination send referrals to home health for PT/OT. Patient was noted to have some healing/scabbed excoriations to her back and legs with no evidence of acute infection. She tells me these were from bug bites she sustained while trimming her [employer] le[employer]uga at home. The lesions are not painful or itchy. She was treated with IV rocephin and discharged with oral cefdinir to complete the course. She was hemodynamically stable for discharge and requesting discharge home on 10/23/29; instructed to follow up with PCP this week. (2) Weakness: Code(s): R53.1 - Weakness Status: Acute Assessment and Plan: May be related to acute UTI; age/debility certainly may be contributing. Home health PT/OT recommended and referrals sent; follow up with PCP. (3) Sepsis: Qualifiers: Sepsis acute organ dysfunction status: without acute organ dysfunction Sepsis type: sepsis due to unspecified organism Qualified Code(s): A41.9 - Sepsis, unspecified organism Code(s): A41.9 - Sepsis, unspecified organism Status: Acute Assessment and Plan: Evident on arrival by leukocytosis and fever. Suspected source is urinary. Vitals are stable. Urine culture grew E coli. DC with antibiotics; blood cultures pending at discharge and will follow until final. (4) Multiple excoriations: Code(s): T07.XXXA - Unspecified multiple injuries, initial encounter Status: Acute Assessment and Plan: Patient tells me these are old bug bites. No evidence of acute infection. They are not bothering her. Follow up PCP. DS: Summary Time Spent with Patient Time attestation: Total time spent providing and/or coordinating discharge services:40 minutes Exam Narrative: Exam Narrative: General: Elderly female resting sitting up in bed eating lunch in no acute distress. Requesting to discharge. HEENT: Normocephalic, EOMI, oral mucosa moist. Cardiovascular: Rate and rhythm are regular. Respiratory: Lungs clear to auscultation all pardo. Non-labored breathing. Abdomen: Soft, non-tender, non-distended, bowel sounds present. Extremities: Peripheral pulses intact. No edema. Neuro: Alert and oriented x 3. No focal neurological deficits. Speech is clear. Upper and lower extremity strength is equal bilaterally. Skin: Multiple healing, scabbed excoriations noted to patient's back and legs without s/s of acute infection. DS: Data Data Completed and Pending Labs on day of discharge: Last Vital Signs Temp 98.7 F 10/24/19 14:00 Pulse 67 10/24/19 14:00 Resp 16 10/24/19 14:00 BP 120/53 L 10/24/19 14:00 Pulse Ox 97 10/24/19 14:00 ITS Impress
--- NOTE | 2019-10-27 13:55 | PCCCNOTE ---
Received call from Neris, Mold Changer at [facility]. Per Neris she spoke with pt. this morning, 10/27/2019 and offered HH PT/OT services. Pt. declines the need for home health therapy, Neris then cancelled the HH referral.
== END 2019-10-24 17:40 | disposition home health service (06) ==
LOC: ANHED 18:15 → ANH3MED 18:49
PROVIDERS: Admitting Provider Internal Medicine; Emergency Provider Emergency Medicine; PCP Family Medicine; Visit Provider Family Medicine
DX: A41.9 Sepsis, unspecified organism (principal); R82.90 Unspecified abnormal findings in urine; T07.XXXA Unspecified multiple injuries, initial encounter; R53.1 Weakness; E87.1 Hypo-osmolality and hyponatremia; E83.51 Hypocalcemia; F17.210 Nicotine dependence, cigarettes, uncomplicated; W57.XXXA Bitten or stung by nonvenomous insect and other nonvenomous arthropods, initial encounter
CPT/HCPCS: 36415; 51701; 70450; 71045; 80048; 80053; 81001; 81003; 83605; 85025; 87040; 87077; 87086; 87088; 87186; 93005; 96361; 96365; 97161; 97165; 99285; A9270; G0378; J0696; J7030

== ENCOUNTER 2019-12-28 19:45 | Inpatient (IN) | payer MEDICARE, SELFPAY ==
[2019-12-28] VITALS (18 sets, daily range): BP systolic 133–148; BP diastolic 51–72; PULSE 80–96; RESP 18–30; TEMP 38.2–38.6; O2SAT 91–97
--- NOTE | ~2019-12-28 | XR_ITS ---
EXAMINATION: XR chest 1V portable DATE: 12/28/2019 21:55 INDICATION: Syncope. TECHNIQUE: A single frontal view of the chest was obtained. COMPARISON: Chest single view 10/23/2019 FINDINGS: There is mild scarring at the lung apices. No pleural effusion or pneumothorax. The heart s ize is normal. IMPRESSION: 1. Mild scarring at the lung apices. Reviewed, dictated and finalized at location A. ALL MECHANIC
--- NOTE | ~2019-12-28 | US_ITS ---
EXAMINATION: US venous doppler [facility] DATE: 01/01/2020 14:11 INDICATION: Lower limb swelling TECHNIQUE: Kendrick scale images without and with compression and Doppler images of the bilateral lower e xtremity veins were obtained. COMPARISON: None FINDINGS: The right common femoral vein, profunda femoral vein, femoral vein, popliteal vein, peroneal trunk, p osterior tibial veins, and greater saphenous vein are patent. The left common femoral vein, profunda femoral vein, femoral vein, popliteal vein, peroneal trunk, po sterior tibial veins, and greater saphenous vein are patent. IMPRESSION: 1. Patent bilateral lower extremity veins. No evidence of deep venous thrombosis. Reviewed, dictated and finalized at location A. GER COMBINATION IMPRESSION: 1. Patent bilateral lower extremity veins. No evidence of deep venous thrombosi s.
--- NOTE | ~2019-12-28 | CT_ITS ---
EXAMINATION: CT brain wo con DATE: 12/28/2019 21:53 INDICATION: Syncope. TECHNIQUE: Computed tomography (CT) of the head was performed without intravenous contrast. The mA wa s adjusted according to patient size. Iterative reconstruction technique was employed. The dose-lengt h product was 681.00 mGy-cm. COMPARISON: Head CT 10/23/2019 FINDINGS: There is no intracranial hemorrhage, acute infarction, or abnormal intracranial mass lesion . The ventricles are normal in size. There are likely changes of ocular lens replacement surgeries. T he mastoid air cells are normal. There is mild mucosal thickening in the ethmoid sinuses. IMPRESSION: 1. Normal brain. Reviewed, dictated and finalized at location A. OCOMPOSITION KEYBOARD OPERATOR IMPRESSION: 1. Normal brain.
--- NOTE | 2019-12-28 19:51 | ECG_ITS ---
Measurements Intervals Evans Rate: 97 P: 59 PA: 125 QRS: 83 QRSD: 84 T: 56 QT: 359 QTc: 458 Interpretive Statements SINUS RHYTHM BASELINE ARTIFACT- I, II, III, AVR, AVL, AVF, V1-V6 NORMAL ECG Electronically Signed On 12-29-2019 6:16:04 [employer]OR [employer]ING by Ronald Lyon D.O.
--- NOTE | 2019-12-28 20:30 | PC.NURSE ---
patient here with possible UTI. s/p unwitnessed fall vs. syncopal episode. see triage notes. all history per patient's . patient alert and more oriented now per her spouse. assessments documented. EKG done. on monitoring engineer. SL inserted. patient and aware we will need urine specimen.
[2019-12-28 20:44] LABS: Basophils Percent Auto 0.2 % (0.2-1.2); Hematocrit 36.5 % (37.0-47.0); Hemoglobin 11.7 g/dL (12.0-15.0); Immature Granulocyte Absolute 0.13 K/mm3 (0.00-0.031); Immature Granulocyte Percent A 0.9 % (0-0.5); Lymphocytes Absolute Auto 0.51 K/mm3 (0.9-3.2); Lymphocytes Percent Auto 3.5 % (18.3-44.2); Mean Corpuscular HGB Conc 32.1 g/dl (32-36); Mean Corpuscular Volume 90.3 fl (80-100); Mean Platelet Volume 9.9 fl (7.4-10.4); Monocytes Absolute Auto 0.6 K/mm3 (0.1-0.6); Monocytes Percent Auto 3.9 % (2.6-8.5); Neutrophils Absolute Auto 13.5 K/mm3 (1.3-6.7); Neutrophils Percent Auto 91.5 % (45.5-73.1); Platelet Count Result 240 k/mm3 (150-375); Red Blood Count 4.04 M/mm3 (4.2-5.4); Red Cell Distribution Width 14.8 % (11.5-14.5); White Blood Count 14.8 K/mm3 (4.5-10.0)
[2019-12-28 20:56] LABS: Alanine Aminotransferase 30 U/L (4-35); Albumin Level 4.3 g/dL (3.5-5.1); Alkaline Phosphatase 100 U/L (38-126); Anion Gap 9 mmol/L (8-16); Aspartate Amino Transferase 35 U/L (14-36); Bilirubin,Total 0.4 mg/dL (0.2-1.3); Blood Urea Nitrogen 23 mg/dL (7-17); Carbon Dioxide 27 mmol/L (22-30); Chloride 104 mmol/L (98-107); Estimated CRCL calculation 31 ml/min; Estimated Glomerular Filt Rate 53; Glucose 111 mg/dL (65-105); Potassium 4.1 mmol/L (3.4-5.0); Sodium 140 mmol/L (137-145)
--- NOTE | 2019-12-28 21:11 | ED.GENADULT ---
HPI - General Adult General Chief complaint: Syncope Stated complaint: n/v, syncopal episode at home Time Seen by Provider: 12/28/19 20:56 Source: patient and family History of Present Illness HPI narrative: Patient is a 84 y/o female came in for possible syncope. states that he found her on laying the ground in the yard about 1-2 hours ago. She states that she does not recall how she got to the ground or how long she had been there. She denies any injury, but states that she was too weak to get up. She has no headache, neck pain, chest pain or abdominal pain. Related Data Home Medications Medication Instructions Recorded Confirmed No Home Medications 10/23/19 12/29/19 Allergies Allergy/AdvReac Type Severity Reaction Status Date / Time acetaminophen AdvReac Mild Shakiness Verified 12/29/19 01:21 ibuprofen AdvReac Mild Shakiness Verified 12/29/19 01:21 Review of Systems Constitutional: Constitutional: Denies chills, Denies fever(s), Denies headache(s) and Denies weakness Eyes: Eyes: Denies blurry vision ENT: Denies headache(s) and Denies neck pain Cardiovascular: Cardiovascular: Denies chest pain and Denies dyspnea Respiratory: Respiratory: Denies cough and Denies dyspnea Gastrointestinal: Gastrointestinal: Denies abdominal pain, Denies diarrhea, Denies nausea and Denies vomiting Genitourinary: Genitourinary: Denies hematuria and Denies dysuria Musculoskeletal: Musculoskeletal: Denies back pain and Denies neck pain Neurologic: Reports syncope, Denies headache(s) and Denies weakness [facility] Past Medical History Medical History (Updated 12/29/19 @ 11:20 by Mayra Alcantara MD) History of squamous cell carcinoma Patient denies significant medical history Surgical History Surgical History History of surgical removal of skin lesion Right knee; squamous cell carcinoma per patient Family History Family History (Updated 12/29/19 @ 10:54 by David Ramsey MD) Father , sudden at age 84 assumed to be cardiac Acute myocardial infarction Mother , be ceased at age 64 with breast cancer Breast cancer Other Unknown family medical history Social History Social History Social History: Patient lives at home with , Amadeo, whom she designates as surrogate medical decision maker. Her PCP is Dr. Conte. She wishes to be listed as a Full Code Smoking packs per day: 0.25 Smoking cigarettes per day: 5.0 Years smoked: 50 Smoking pack-years: 12.50 Smoking status: Current every day smoker Tobacco type: cigarettes Second hand tobacco smoke exposure: Yes Alcohol intake: current Drinks per week: 2 Substance use: never Gender identity (if verbalized by the patient): Female Spiritual care concerns: No Exam Const: General: no acute distress and well developed Nutritional Appearance: thin Orientation/consciousness: oriented to person, oriented to place, oriented to time and patient oriented x3 HENMT: Head: normocephalic Ears: external ears normal General nose exam: Normal external nose present Eyes: General: appearance normal, both eyes and all related structures Conjunctivae: conjunctivae normal Neck: Neck: normal visual inspection and full ROM Chest: Chest palpation & inspection: normal inspection of the chest and no tenderness Resp: Effort & Inspection: normal respiratory effort Auscultation: clear to auscultation bilaterally Cardio: Rate: regular rate Rhythm: regular rhythm GI: GI Palp: No abdominal tenderness and Yes Soft to palpation Skin: General skin exam: normal color and turgor normal Neuro: General: oriented to person, oriented to place, oriented to time and patient oriented x3 Cranial nerves: Yes CN's II-XII intact bilaterally Cognition (Neuro): normal cognition Speech: normal speech Motor exam (neuro): 5/[address]
[2019-12-28 21:49] LABS: Add Urine Microscopic? YES; Appearance Urine Clear (Clear); Bilirubin Urine Negative (Negative); Blood Urine 1+ (Negative); Color Urine Straw (Yellow); Glucose Urine UA Negative (Negative); Ketones Urine Trace mg/dL (Negative); Leukocyte Esterase Ur Negative LEU/UL (Negative); Mucus Urine Rare /lpf; Nitrate Urine Negative (Negative); Protein Urine Negative (Negative); Specific Grav Ur 1.015 (1.001-1.035); Squamous Epithelial Cell Urine Few /hpf (Few); Urobilinogen Urine Negative mg/dL (<2.0); WBC Urine 0-3 /hpf
[2019-12-28] MEDS: ASPIRIN 325 MG TABLET (22:32)
[2019-12-28 22:36] LABS: Lactic Acid Reflex 0.7 mmol/L (0.7-2.1)
--- NOTE | 2019-12-28 22:48 | PC.NURSE ---
provider in room. reviewed all test results with patient and spouse.
--- NOTE | 2019-12-28 23:05 | PC.NURSE ---
Assumed care of pt. at this time. Report from ROSAURA Moreira
[2019-12-29] VITALS (13 sets, daily range): BP systolic 102–136; BP diastolic 42–58; PULSE 68–100; RESP 18–28; TEMP 36.8–39.2; O2SAT 91–97; BMI 19.7; BMI 18.7
[2019-12-29] MEDS: SODIUM CHLORIDE 0.9% IV 1,000 ML 100 ML IV CONT (00:18)
--- NOTE | 2019-12-29 00:40 | PC.NURSE ---
This patient, Cathy Mcgee, was admitted to [facility] Room 323-01. Patient/family oriented to hospital policies and general routines including ID bracelet, bed and alarms, visiting hours, pain management, procedures, bathroom and other care routines, personal items, smoking policy, room service/diet, and visiting hours. Information on how to activate the Rapid Response Team has been discussed. Patient/Family are encouraged to report perceived risks to care and to ask questions if they do not understand what they are told or what they should do.
--- NOTE | 2019-12-29 02:50 | PC.NURSE ---
This nurse took pt temp at 0245, was 102.5 F. Call made to hospitalist Kim, stating patient allergies include tylenol and ibuprofen. Kim suggests cooling measures. This RN applied ice packs to grion, neck, and bilateral axilla of patient.
--- NOTE | 2019-12-29 10:45 | PM.IMHP ---
H&P: HPI History of Present Illness Date/Time: 12/29/19 10:45 Chief complaint: syncope, sirs Narrative: Date of visit 12/28 1015. Cathy Mcgee is a 84 year old healthy female who states while out walking in the yard yesterday evening she became weak collapsed and fell. She denies any trauma or loss of consciousness but states she was too weak to get. Her found her and brought her to the emergency room for evaluation. Initial evaluation here was unremarkable other than mild leukocytosis and she was admitted for observation for possible syncope. She had no warning, palpitations, or other symptomatology prior to falling and states she was only down for about 10 minutes. No history of syncope. Was last hospitalized here just over a month ago for urinary tract infection and altered mental status which she had also in June of 2019. She has had no fever, chills, cough, nausea, vomiting, or diarrhea. Appetite have been fine and no symptoms prior to the present illness. Review of Systems Review of Systems: Narrative: constitutional she said she had lost a couple lb over last 6 months no apparent reason with good appetite eye no double vision scotoma mouth no pharyngitis laryngitis pulmonary no shortness breath wheezing or cough CV no chest pain palpitation or pedal edema GI has above no melena hematochezia diarrhea constipation no dysuria no hematuria muscle skeletal occasional joint knee or back pain integument no skin breakdown or but she had had a area on right lower leg that had been irritated psych affect appropriate neuro as above no history of seizure either PMFSH Past Medical History Medical History (Updated 12/29/19 @ 11:20 by Mayra Alcantara MD) History of squamous cell carcinoma Patient denies significant medical history Surgical History Surgical History History of surgical removal of skin lesion Right knee; squamous cell carcinoma per patient Family History Family History (Updated 12/29/19 @ 10:54 by David Ramsey MD) Father , sudden at age 84 assumed to be cardiac Acute myocardial infarction Mother , be ceased at age 64 with breast cancer Breast cancer Other Unknown family medical history Social History Social History Social History: Patient lives at home with , Amadeo, whom she designates as surrogate medical decision maker. Her PCP is Dr. Conte. She wishes to be listed as a Full Code Smoking packs per day: 0.25 Smoking cigarettes per day: 5.0 Years smoked: 50 Smoking pack-years: 12.50 Smoking status: Current every day smoker Tobacco type: cigarettes Second hand tobacco smoke exposure: Yes Alcohol intake: current Drinks per week: 2 Substance use: never Gender identity (if verbalized by the patient): Female Spiritual care concerns: No Meds Home Medications and Allergies Home Medications Medication Instructions Recorded Confirmed Type No Home Medications 10/23/19 12/29/19 History Allergies Allergy/AdvReac Type Severity Reaction Status Date / Time acetaminophen AdvReac Mild Shakiness Verified 12/29/19 01:21 ibuprofen AdvReac Mild Shakiness Verified 12/29/19 01:21 Vital Signs Vital Signs - 24 hr 12/28/19 20:06 12/28/19 20:07 12/28/19 20:14 Temperature Pulse Rate 95 93 94 Respiratory Rate 23 H 18 22 H Blood Pressure 148/72 H 148/72 H Pulse Oximetry 91 96 12/28/19 20:15 12/28/19 20:16 12/28/19 20:17 Temperature Pulse Rate 94 95 94 Respiratory Rate 22 H 30 H 22 H Blood Pressure 141/67 H Pulse Oximetry 12/28/19 20:30 12/28/19 20:31 12/28/19 20:45 Temperature Pulse Rate 94 92 92 Respiratory Rate 20 21 H 24 H Blood Pressure 138/64 Pulse Oximetry 97 97 96 12/28/19 20:46 12/28/19 21:00 12/28/19 21:01 Temperature Pulse Rate 92 88 92 Respiratory Rate 1
[2019-12-29 11:21] LABS: Basophils Percent Auto 0.1 % (0.2-1.2); Hematocrit 35.2 % (37.0-47.0); Hemoglobin 11.4 g/dL (12.0-15.0); Immature Granulocyte Absolute 0.12 K/mm3 (0.00-0.031); Immature Granulocyte Percent A 0.9 % (0-0.5); Lymphocytes Absolute Auto 0.47 K/mm3 (0.9-3.2); Lymphocytes Percent Auto 3.3 % (18.3-44.2); Mean Corpuscular HGB Conc 32.4 g/dl (32-36); Mean Corpuscular Hemoglobin 28.8 pg (26-34); Mean Corpuscular Volume 88.9 fl (80-100); Mean Platelet Volume 9.9 fl (7.4-10.4); Monocytes Absolute Auto 0.3 K/mm3 (0.1-0.6); Monocytes Percent Auto 2.2 % (2.6-8.5); Neutrophils Absolute Auto 13.1 K/mm3 (1.3-6.7); Neutrophils Percent Auto 93.5 % (45.5-73.1); Platelet Count Result 190 k/mm3 (150-375); Red Blood Count 3.96 M/mm3 (4.2-5.4); Red Cell Distribution Width 14.6 % (11.5-14.5); White Blood Count 14.1 K/mm3 (4.5-10.0)
[2019-12-29 11:31] LABS: Anion Gap 7 mmol/L (8-16); Blood Urea Nitrogen 17 mg/dL (7-17); Calcium 8.5 mg/dL (8.4-10.2); Carbon Dioxide 25 mmol/L (22-30); Chloride 105 mmol/L (98-107); Estimated CRCL calculation 35 ml/min; Estimated Glomerular Filt Rate 60; Glucose 105 mg/dL (65-105); Potassium 3.7 mmol/L (3.4-5.0); Sodium 137 mmol/L (137-145)
[2019-12-29 12:23] LABS: Creatine Kinase 5860 U/L (30-135)
[2019-12-29] MEDS: EUCERIN CREAM 120 GM JAR 1 APPLIC TOPICAL (12:33)
[2019-12-29] MEDS: ENOXAPARIN 40 MG/0.4 ML SYRINGE SUB-Q (12:33)
[2019-12-29] MEDS: ASPIRIN 325 MG TABLET PO ×2 (12:33→21:34)
[2019-12-29] MEDS: SODIUM CHLORIDE 0.9% IV 1,000 ML 125 ML IV CONT (16:34)
[2019-12-30] VITALS (9 sets, daily range): BP systolic 107–122; BP diastolic 41–63; PULSE 55–74; RESP 16–20; TEMP 36.6–37.1; O2SAT 96–100
[2019-12-30] MEDS: SODIUM CHLORIDE 0.9% IV 1,000 ML 125 ML IV CONT ×3 (01:34→21:32)
[2019-12-30 06:29] LABS: Basophils Percent Auto 0.2 % (0.2-1.2); Eosinophils Percent Auto 0.1 % (0-4.4); Hematocrit 31.2 % (37.0-47.0); Hemoglobin 10.2 g/dL (12.0-15.0); Immature Granulocyte Absolute 0.07 K/mm3 (0.00-0.031); Immature Granulocyte Percent A 0.8 % (0-0.5); Lymphocytes Percent Auto 9.7 % (18.3-44.2); Mean Corpuscular HGB Conc 32.7 g/dl (32-36); Mean Corpuscular Hemoglobin 29.2 pg (26-34); Mean Corpuscular Volume 89.4 fl (80-100); Monocytes Absolute Auto 0.6 K/mm3 (0.1-0.6); Monocytes Percent Auto 6.5 % (2.6-8.5); Neutrophils Absolute Auto 7.7 K/mm3 (1.3-6.7); Neutrophils Percent Auto 82.7 % (45.5-73.1); Platelet Count Result 150 k/mm3 (150-375); Red Blood Count 3.49 M/mm3 (4.2-5.4); White Blood Count 9.3 K/mm3 (4.5-10.0)
[2019-12-30 06:48] LABS: Anion Gap 5 mmol/L (8-16); Blood Urea Nitrogen 17 mg/dL (7-17); Calcium 7.9 mg/dL (8.4-10.2); Carbon Dioxide 23 mmol/L (22-30); Chloride 108 mmol/L (98-107); Estimated CRCL calculation 37 ml/min; Estimated Glomerular Filt Rate > 60; Glucose 90 mg/dL (65-105); Potassium 3.6 mmol/L (3.4-5.0); Sodium 136 mmol/L (137-145)
[2019-12-30 07:17] LABS: Creatine Kinase 6408 U/L (30-135)
[2019-12-30] MEDS: ENOXAPARIN 40 MG/0.4 ML SYRINGE SUB-Q (08:30)
[2019-12-30] MEDS: POTASSIUM CHLORIDE 20 MEQ TABLET 40 MEQ PO (08:31)
[2019-12-30] MEDS: EUCERIN CREAM 120 GM JAR 1 APPLIC TOPICAL (08:37)
--- NOTE | 2019-12-30 17:35 | PM.IMPN ---
Progress Note: A&P Assessment and Plan (1) Sepsis: Qualifiers: Sepsis acute organ dysfunction status: without acute organ dysfunction Sepsis type: sepsis due to unspecified organism Qualified Code(s): A41.9 - Sepsis, unspecified organism Code(s): A41.9 - Sepsis, unspecified organism Status: Acute Assessment and Plan: by criteria of leukocytosis and fever. Cellulitis appears to be source. Blood cultures so far negative and antibiotics started 12/28 with ceftriaxone WBC fell to normal today (2) Cellulitis and abscess of right leg: Code(s): L03.115 - Cellulitis of right lower limb; L02.415 - Cutaneous abscess of right lower limb Status: Acute Assessment and Plan: started ceftriaxone for probable strep cellulitis. white count normal today (3) Weakness: Code(s): R53.1 - Weakness Status: Acute Assessment and Plan: suspect secondary to the infection. No clear history of syncope but will continue secured entrance monitor and echocardiogram still not done (4) DVT prophylaxis: Code(s): Z29.9 - Encounter for prophylactic measures, unspecified Status: Acute Assessment and Plan: Lovenox Subjective Date/time seen: 12/30/19 17:35 Interval history: 84-year-old white female fell in the yd at home without apparent loss of consciousness after becoming weak. Shortly after arrival here spiked temp and had leukocytosis and found to have right leg cellulitis. She feels slightly better this a.m. with no fever and good appetite. Exam Narrative: Exam Narrative: blood pressure is 116/62 pulse is 60 and regular at present time she is afebrile with a T-max of 37.8? pupils equal reactive light sclera anicteric neck supple lungs clear CV regular rate rhythm no murmurs abdomen soft nontender no masses extremities without edema distal pulses are 2+ integument right leg below knee and just above the ankle extending to the foot there is some erythema and is warm but not tender. And less prominent than 1 day prior laterally on the calf there is some excoriated areas of dry scan that are slightly improved also neuro alert no focal deficits Objective Data Vital Signs Vital Signs: Vital Signs - 24 hr 12/29/19 20:00 12/29/19 21:30 12/30/19 00:00 Temperature 37.8 C H Pulse Rate 72 68 65 Respiratory Rate 20 Blood Pressure 110/55 L Pulse Oximetry 96 12/30/19 01:26 12/30/19 04:00 12/30/19 05:32 Temperature 36.8 C 37.1 C Pulse Rate 61 57 L 68 Respiratory Rate 20 16 Blood Pressure 110/50 L 107/41 L Pulse Oximetry 97 96 12/30/19 08:00 12/30/19 12:00 12/30/19 16:00 Temperature 36.9 C 36.6 C 36.7 C Pulse Rate 58 L 64 55 L Respiratory Rate 16 18 18 Blood Pressure 119/46 L 120/63 117/62 Pulse Oximetry 100 98 98 Intake/Output Intake/Output: Intake & Output 12/27/19 12/28/19 12/29/19 12/30/19 23:59 23:59 23:59 23:59 Intake Total 2540 3170 Output Total 800 Balance 2540 2370 Meds/Results Medications: Active Medications Generic Name Dose Route Start Last Admin Trade Name Freq PRN Reason Stop Dose Admin Aspirin 325 mg 12/29/19 10:40 12/29/19 21:34 Aspirin 325 Mg Tablet PO 325 mg Q6H PRN Administration Pain or Fever Enoxaparin Sodium 40 mg 12/29/19 10:45 12/30/19 08:30 Enoxaparin 40 Mg/0.4 Ml Syringe SUB-Q 40 mg DAILY WENDY Administration Ceftriaxone Sodium/Dextrose 1 gm in 50 mls @ 100 mls/hr 12/29/19 11:00 12/30/19 11:28 Rocephin 1 Gm/D5w 50 Ml IVPB Infused Q24H WENDY Infusion Sodium Chloride 1,000 mls @ 125 mls/hr 12/29/19 14:45 12/30/19 10:58 Normal Saline Iv IV CONT 125 mls/hr .Q8H WENDY Administration Multi-Ingred Cream/Lotion/Oil/Oint 1 applic 12/29/19 09:00 12/30/19 08:37 Eucerin Cream 120 Gm Jar TOPICAL 1 applic QAM WENDY Administration Radiology Results: ITS Impressions Head CT 12/28/19 21:55 IMPRESSION: 1. Normal brain. Ches
[2019-12-30 18:20] LABS: SARS-CoV-2 RNA PCR Negative
[2019-12-31] VITALS (9 sets, daily range): BP systolic 112–136; BP diastolic 56–61; PULSE 51–78; RESP 18; TEMP 36.5–37.1; O2SAT 94–99
--- NOTE | 2019-12-31 | ECHO_ITS ---
Patient Info Name: Cathy Mcgee Age: 84 years : 1935 Gender: Female Ht: 65 in Wt: 118 lbs BSA: 1.56 m2 HR: 61 bpm BP: 112 / 56 mmHg Technical Quality: Good Exam Date: 12/31/2019 11:36 AM Exam Location: [facility] Pulmonary Exam Room: 323 Patient Status: Inpatient Admit Date: 12/29/2019 Staff Ordering Physician: David Ramsey MD Teacher Learning Disabled: Keysha Ann RDCS Attending Provider: Rosalie Alvarez DO Referring Physician: Roxy FARAH; Exam Type: CA echo doppler color flow Study Info Indications - fall possible syncope Complete two-dimensional, color flow and Doppler transthoracic echocardiogram is performed. Summary 1. Complete two-dimensional, color flow and Doppler transthoracic echocardiogram is performed. 2. Left ventricular chamber dimension is mildly enlarged. 3. Left ventricular systolic function is normal, estimated at 60-65%. 4. There is mildly increased left ventricular wall thickness. 5. The left ventricular diastolic function is grade I diastolic dysfunction. 6. E/e' 8 is minimally elevated. 7. Left atrial chamber dimension is mildly enlarged. 8. Right atrial chamber dimension is mildly enlarged. 9. There is mild mitral valve regurgitation. 10. There is mild tricuspid valve regurgitation. 11. No pulmonary hypertension, estimated pulmonary arterial systolic pressure is 30 mmHg. 12. There is trace pulmonic regurgitation. 13. Small atheroma in posterior aortic root. Left Ventricle E/e' 8 is minimally elevated. Left ventricular chamber dimension is mildly enlarged. Left ventricular systolic function is normal, estimated at 60-65%. There is mildly increased left ventricular wall thickness. The left ventricular diastolic function is grade I diastolic dysfunction. Right Ventricle Right ventricular chamber dimension is normal. Right ventricular systolic function is normal. Left Atria Left atrial chamber dimension is mildly enlarged. Right Atria Right atrial chamber dimension is mildly enlarged. Aortic Valve The aortic valve is trileaflet. There is no aortic valve stenosis. There is no aortic valve regurgitation. Pulmonic Valve There is trace pulmonic regurgitation. Mitral Valve There is no mitral valve stenosis. There is mild mitral valve regurgitation. Tricuspid Valve There is mild tricuspid valve regurgitation. No pulmonary hypertension, estimated pulmonary arterial systolic pressure is 30 mmHg. Pericardium/Pleural There is no pericardial effusion. Inferior Vena Cava Normal inferior vena cava with >50% collapse upon inspiration consistent with normal right atrial pressure, 5 mmHg. Aorta Small atheroma in posterior aortic root. The aortic root size at the sinus of Valsalva is normal. Left Ventricular Outflow Tract Name Value Normal LVOT 2D LVOT Diameter 2.0 cm LVOT Doppler LVOT Peak Gradient 2 mmHg LVOT Mean Gradient 1 mmHg LVOT VTI 21 cm LVOT VTI/AV VTI Ratio 0.7 LVOT Stroke Volume
[2019-12-31] MEDS: SODIUM CHLORIDE 0.9% IV 1,000 ML 125 ML IV CONT ×3 (04:45→21:32)
[2019-12-31 06:40] LABS: Anion Gap 1 mmol/L (8-16); Blood Urea Nitrogen 13 mg/dL (7-17); Calcium 7.7 mg/dL (8.4-10.2); Carbon Dioxide 25 mmol/L (22-30); Chloride 112 mmol/L (98-107); Estimated CRCL calculation 42 ml/min; Estimated Glomerular Filt Rate > 60; Glucose 87 mg/dL (65-105); Potassium 3.6 mmol/L (3.4-5.0); Sodium 138 mmol/L (137-145)
[2019-12-31 07:11] LABS: Creatine Kinase 5817 U/L (30-135)
[2019-12-31] MEDS: POTASSIUM CHLORIDE 20 MEQ TABLET 40 MEQ PO (09:49)
[2019-12-31] MEDS: ENOXAPARIN 40 MG/0.4 ML SYRINGE SUB-Q (09:50)
[2019-12-31] MEDS: EUCERIN CREAM 120 GM JAR 1 APPLIC TOPICAL (09:51)
--- NOTE | 2019-12-31 11:39 | PM.IMPN ---
Progress Note: A&P Assessment and Plan (1) Sepsis: Qualifiers: Sepsis acute organ dysfunction status: without acute organ dysfunction Sepsis type: sepsis due to unspecified organism Qualified Code(s): A41.9 - Sepsis, unspecified organism Code(s): A41.9 - Sepsis, unspecified organism Status: Acute Assessment and Plan: by criteria of leukocytosis and fever. Cellulitis appears to be source. Blood cultures negative and antibiotics started 12/28 with ceftriaxone WBC fell to normal 12/29. probable d/c 12/31 (2) Cellulitis and abscess of right leg: Code(s): L03.115 - Cellulitis of right lower limb; L02.415 - Cutaneous abscess of right lower limb Status: Acute Assessment and Plan: started ceftriaxone for probable strep cellulitis. white count normal 12/29 and continue (3) Weakness: Code(s): R53.1 - Weakness Status: Acute Assessment and Plan: suspect secondary to the infection. No clear history of syncope but continue monitor worker and echocardiogram still not done (4) DVT prophylaxis: Code(s): Z29.9 - Encounter for prophylactic measures, unspecified Status: Acute Assessment and Plan: Lovenox Subjective Date/time seen: 12/31/19 11:39 Interval history: Date of visit 12/30 84-year-old white female fell in the yd at home without apparent loss of consciousness after becoming weak. Shortly after arrival here spiked temp and had leukocytosis and found to have right leg cellulitis. She feels slightly better this a.m. with no fever and good appetite., wants to go home Exam Narrative: Exam Narrative: blood pressure is 112/56 pulse is 60 and regular at present time she is afebrile last 48 hours pupils equal reactive light sclera anicteric neck supple lungs clear CV regular rate rhythm no murmurs abdomen soft nontender no masses extremities without edema distal pulses are 2+ integument right leg below knee and just above the ankle extending to the foot there is some residual mild erythema and slight warmth but not tender. And less prominent each day laterally on the calf there is some excoriated areas of dry skin that are improved also neuro alert no focal deficits Objective Data Vital Signs Vital Signs: Vital Signs - 24 hr 12/30/19 12:00 12/30/19 16:00 12/30/19 20:00 Temperature 36.6 C 36.7 C Pulse Rate 64 55 L 64 Respiratory Rate 18 18 Blood Pressure 120/63 117/62 Pulse Oximetry 98 98 12/30/19 21:57 12/31/19 00:00 12/31/19 04:00 Temperature 37.0 C Pulse Rate 74 53 L 51 L Respiratory Rate 18 Blood Pressure 122/52 L Pulse Oximetry 100 12/31/19 06:00 Temperature 37.1 C Pulse Rate 61 Respiratory Rate 18 Blood Pressure 112/56 L Pulse Oximetry 97 Intake/Output Intake/Output: Intake & Output 12/28/19 12/29/19 12/30/19 12/31/19 23:59 23:59 23:59 23:59 Intake Total 2540 4170 1240 Output Total 800 100 Balance 2540 3370 1140 Meds/Results Medications: Active Medications Generic Name Dose Route Start Last Admin Trade Name Freq PRN Reason Stop Dose Admin Aspirin 325 mg 12/29/19 10:40 12/29/19 21:34 Aspirin 325 Mg Tablet PO 325 mg Q6H PRN Administration Pain or Fever Enoxaparin Sodium 40 mg 12/29/19 10:45 12/31/19 09:50 Enoxaparin 40 Mg/0.4 Ml Syringe SUB-Q 40 mg DAILY WENDY Administration Ceftriaxone Sodium/Dextrose 1 gm in 50 mls @ 100 mls/hr 12/29/19 11:00 12/30/19 11:28 Rocephin 1 Gm/D5w 50 Ml IVPB Infused Q24H WENDY Infusion Sodium Chloride 1,000 mls @ 125 mls/hr 12/29/19 14:45 12/31/19 04:45 Normal Saline Iv IV CONT 125 mls/hr .Q8H WENDY Administration Multi-Ingred Cream/Lotion/Oil/Oint 1 applic 12/29/19 09:00 12/31/19 09:51 Eucerin Cream 120 Gm Jar TOPICAL 1 applic QAM WENDY Administration Radiology Results: ITS Impressions Head CT 12/28/19 21:55 IMPRESSION: 1. Normal brain. Chest X-Ray
--- NOTE | 2019-12-31 13:18 | PCDIET ---
Nutrition Follow-Up Complete: Inadequate oral intake r/t reduced appetite as evidence by wt loss and 93% of UBW PO intake of 75% of meals and supplements Goal: Goal met. Continue goal. Pt current nutrition is Heart Healthy + Ensure Compact Nutrition recommendation: agree Last recorded weight is 51.1 kg, down from 53.7kg Bowel Motility: no BM Labs Reviewed:Na 136 Meds Noted: normal saline, rocephin Additional Notes: Pt eating very well, 100%x last 4 meals. Drinking nutrition supplements for added nutrition. Denies trouble chewing or swallowing. We will continue to monitor for adequate intake every five days.
[2020-01-01] VITALS: PULSE 63
[2020-01-01 04:00] VITALS: PULSE 45
[2020-01-01 06:00] VITALS: BP 116/67; PULSE 68; RESP 16; TEMP 36.2; O2SAT 97
[2020-01-01] MEDS: SODIUM CHLORIDE 0.9% IV 1,000 ML 125 ML IV CONT (06:52)
[2020-01-01 07:02] LABS: Alanine Aminotransferase 48 U/L (4-35); Albumin Level 2.6 g/dL (3.5-5.1); Alkaline Phosphatase 66 U/L (38-126); Anion Gap 3 mmol/L (8-16); Aspartate Amino Transferase 118 U/L (14-36); Bilirubin,Total 0.2 mg/dL (0.2-1.3); Blood Urea Nitrogen 12 mg/dL (7-17); Carbon Dioxide 24 mmol/L (22-30); Chloride 113 mmol/L (98-107); Estimated CRCL calculation 42 ml/min; Estimated Glomerular Filt Rate > 60; Glucose 86 mg/dL (65-105); Potassium 3.6 mmol/L (3.4-5.0); Sodium 140 mmol/L (137-145)
[2020-01-01 07:45] LABS: Creatine Kinase 4244 U/L (30-135)
[2020-01-01 08:00] VITALS: PULSE 64
[2020-01-01] MEDS: EUCERIN CREAM 120 GM JAR 1 APPLIC TOPICAL (08:38)
[2020-01-01] MEDS: ENOXAPARIN 40 MG/0.4 ML SYRINGE SUB-Q (08:38)
[2020-01-01 12:00] VITALS: PULSE 64
[2020-01-01 14:00] VITALS: BP 117/63; PULSE 50; RESP 18; TEMP 36.5; O2SAT 100
--- NOTE | 2020-01-02 18:30 | PM.DS ---
DS: Admitting Diagnosis Admitting Diagnosis Admitting Diagnosis: syncope, sirs DS: Discharge Diagnosis Discharge Diagnosis (1) Sepsis: Qualifiers: Sepsis acute organ dysfunction status: without acute organ dysfunction Sepsis type: sepsis due to unspecified organism Qualified Code(s): A41.9 - Sepsis, unspecified organism Code(s): A41.9 - Sepsis, unspecified organism Status: Acute Assessment and Plan: by criteria of leukocytosis and fever. Cellulitis appears to be source. Blood cultures negative and antibiotics started 12/28 with ceftriaxone WBC fell to normal 12/29. Receive 4 days of IV ceftriaxone and will convert to Keflex 500 t.i.d. for 7 more days. Venous Doppler was negative for DVT COVID testing was negative (2) Cellulitis and abscess of right leg: Code(s): L03.115 - Cellulitis of right lower limb; L02.415 - Cutaneous abscess of right lower limb Status: Acute Assessment and Plan: probable says strep cellulitis which responded quickly to ceftriaxone. As above transition to Keflex 500 q.8 hours on discharge (3) Weakness: Code(s): R53.1 - Weakness Status: Acute Assessment and Plan: suspect secondary to the infection. No clear history of syncope and no arrhythmias seen on monitor. Echocardiogram revealed normal ejection fraction with no valvular problems. And CT of the brain was unremarkable. (4) Rhabdomyolysis: Code(s): M62.82 - Rhabdomyolysis Status: Acute Assessment and Plan: patient did have elevated CK as high as 6000 and was very fast slow to fall and was still at 4000 at discharge. Creatinine remained normal and she was taking plenty of fluids we felt it was safe to be discharged home. She will follow-up with the primary care within a week and probable have repeat CK drawn at that time DS: Summary Hospital Course Hospital Course: 84-year-old healthy white female admitted after having fallen in the yd with no definite syncopal episode noted. She had fever and was admitted for potential COVID. Within 24 hour she had erythema is swelling of the right leg with below knee to the ankle where she had had some irritated excoriated skin. Treated with ceftriaxone IV daily and white count returned to normal and erythema and swelling subsided. Discharged on Keflex 500 Q 8 for 7 more days. Venous Doppler was negative and COVID testing was negative. Significantly also she had elevated CK which was still elevated at discharge though falling and creatinine remain normal with hydration. Encourage further oral hydration at home and show follow-up primary care within 1-2 weeks with repeat laboratory testing as needed Time Spent with Patient Time attestation: Total time spent providing and/or coordinating discharge services: 35 minutes Exam Narrative: Exam Narrative: condition on discharge blood pressure 116/64 pulse is 52 and regular sat 100% on room air afebrile lungs clear CV regular rate rhythm abdomen is soft nontender extremities some prominence of right leg and mild erythema and warmth of the leg below the knee to the ankle. Much improved since admission though. She was up taking a diet well ambulating without difficulty and able to be discharged home in stable condition. DS: Data Data Completed and Pending Labs on day of discharge: Preliminary micro results at discharge 12/28/19 22:19 Blood Culture - Preliminary Blood 12/28/19 22:59 Blood Culture - Preliminary Blood Discharge Plan Discharge Attending physician on discharge: David Ramsey Discharging Clinician: David Ramsey Patient Disposition: Home, Self-Care Activity: as tolerated Diet: regular Patient Instructions: Antibiotic Form, How to Stop Smoking (DC), Pain Management in Older Adults (GEN), Syncope (DC), Fall Prevention for Older Adults (DC), COVID-19 (Coronavirus Disease 2019) (GEN) Stand Alone Forms: Gener
== END 2020-01-01 16:20 | disposition home or self-care (01) | DRG 872 ==
LOC: ANHED 20:56 → ANH3MEDSUR 23:57
PROVIDERS: Emergency Medicine; Admitting Provider Internal Medicine; Emergency Provider Emergency Medicine; PCP Family Medicine; Visit Provider Internal Medicine
DX: A41.9 Sepsis, unspecified organism (principal); L03.115 Cellulitis of right lower limb; L02.415 Cutaneous abscess of right lower limb; M62.82 Rhabdomyolysis; Z20.828 Contact with and (suspected) exposure to other viral communicable diseases; M79.89 Other specified soft tissue disorders; R53.1 Weakness; R55 Syncope and collapse; F17.210 Nicotine dependence, cigarettes, uncomplicated; W18.30XA Fall on same level, unspecified, initial encounter; Z85.828 Personal history of other malignant neoplasm of skin
CPT/HCPCS: 36415; 70450; 71045; 80048; 80053; 81001; 82550; 83605; 85025; 87040; 87635; 87804; 93005; 93306; 93970; 96361; 96365; 96372; 97110; 97116; 97161; 97165; 99285; A9270; C9803; G0378; J0696; J1650; J7030; U0003

== ENCOUNTER 2021-10-09 09:29 | Emergency (ER) | payer MEDICARE, SELFPAY ==
[2021-10-09 09:40] VITALS: BP 139/66; PULSE 32; RESP 16; TEMP 37; O2SAT 100
--- NOTE | 2021-10-09 09:42 | ED.WEAKNESS ---
HPI - Weakness General Chief complaint: Weakness Stated complaint: unsteady walking/low heart rate Time Seen by Provider: 10/09/21 09:42 Source: patient and RN notes reviewed History of Present Illness HPI Narrative: Patient is an 86-year-old female presents the urgent care with her spouse with complaints of fatigue, weakness, inability to walk a straight line and bradycardia. Patient states that she woke up feeling this way at 7 AM. Patient denies any blood pressure medication or heart medication. Denies any chest pain or shortness of breath. Patient denies of any recent illness. Denies of any history of CVA. No other acute complaints. No obvious distress noted. Patient and spouse aware of the plan of care. Some parts of this dictation were generated by voice recognition software and may contain typographical and/or grammatical inaccuracies. Related Data Home Medications Medication Instructions Recorded Confirmed No Home Medications 10/23/19 10/09/21 Allergies Allergy/AdvReac Type Severity Reaction Status Date / Time acetaminophen AdvReac Mild Shakiness Verified 10/09/21 09:40 ibuprofen AdvReac Mild Shakiness Verified 10/09/21 09:40 Review of Systems Review of Systems: CONSTITUTIONAL: Denies fever, chills, or sweats. Reports of fatigue EYES: Denies visual changes, redness, or discharge. ENT: Denies rhinorrhea, congestion, sore throat, or otalgia. CARDIOVASCULAR: Denies chest pain, palpitations, or edema. RESPIRATORY: Denies cough or dyspnea. GASTROINTESTINAL: Denies abdominal pain, nausea, vomiting, or diarrhea. GENITOURINARY: Denies dysuria or hematuria. SKIN: Denies rash or itching. MUSCULOSKELETAL: Denies back pain, joint pain, or myalgia. NEUROLOGIC: Reports of weakness and inability to ambulate a straight line All other systems reviewed are negative, except as documented in HPI. [facility] Past Medical History Medical History History of squamous cell carcinoma Patient denies significant medical history Surgical History Surgical History History of surgical removal of skin lesion Right knee; squamous cell carcinoma per patient Family History Family History Father , sudden at age 84 assumed to be cardiac Acute myocardial infarction Mother , be ceased at age 64 with breast cancer Breast cancer Other Unknown family medical history Social History Social History Social History: Patient lives at home with , Amadeo, whom she designates as surrogate medical decision maker. Her PCP is Dr. Conte. She wishes to be listed as a Full Code Smoking packs per day: 0.25 Smoking cigarettes per day: 5.0 Years smoked: 50 Smoking pack-years: 12.50 Smoking status: Current every day smoker Tobacco type: cigarettes Second hand tobacco smoke exposure: Yes Alcohol intake: current Drinks per week: 2 Substance use: never Gender identity (if verbalized by the patient): Female Sexual Orientation (if Verbalized by the Patient): Straight or Heterosexual Spiritual care concerns: No Comments At the time of my signature, I reviewed and agree with the nursing past medical, surgical, social, and family history. There is no relevant family history pertinent to the patient complaint. Exam Narrative: GENERAL: This is a well-nourished, well-developed patient, in no apparent distress. HEAD: normocephalic, atraumatic. EYES: PERRL. Sclera clear/white. Vision is grossly intact. EARS: External ears normal NOSE: External nose normal with no obvious nasal discharge, nares without redness, no rhinorrhea. THROAT: Mucous membranes moist NECK: Neck supple CARDIOVASCULAR: Bradycardic RESPIRATORY: Clear to auscultation. Diminished bibasilar SKIN: warm, i
[2021-10-09 09:53] LABS: Glucose Point of Care 93 mg/dl (65-105)
== END 2021-10-09 09:52 | disposition short-term general hospital (02) ==
PROVIDERS: Emergency Provider Nurse Practitioner Family; PCP Physician Assistant
DX: R53.1 Weakness (principal); R00.1 Bradycardia, unspecified; R53.83 Other fatigue; F17.210 Nicotine dependence, cigarettes, uncomplicated; Z85.828 Personal history of other malignant neoplasm of skin
CPT/HCPCS: 82948; 99215; G0463

== ENCOUNTER 2021-10-09 10:26 | Emergency (ER) | payer MEDICARE, SELFPAY ==
[2021-10-09] VITALS (13 sets, daily range): BP systolic 121–149; BP diastolic 53–68; PULSE 47–61; RESP 13–22; TEMP 36.8; O2SAT 99–100
--- NOTE | ~2021-10-09 | XR_ITS ---
EXAMINATION: XR chest 1V INDICATION: Dizziness TECHNIQUE: AP view of the chest is obtained. COMPARISON: 12/28/2019 FINDINGS: The lungs are free of acute opacities. No pleural effusion or pneumothorax. The cardiomedia stinal silhouette is normal. IMPRESSION: 1. No acute cardiopulmonary abnormality. Reviewed, dictated and finalized at location A.
--- NOTE | ~2021-10-09 | CT_ITS ---
EXAMINATION: CT brain wo con DATE: 10/09/2021 11:03 INDICATION: Dizziness TECHNIQUE: Computed tomography (CT) of the head was performed without intravenous contrast. The dose- length product was 605.33 mGy-cm. COMPARISON: CT dated 12/28/2019 FINDINGS: Generalized atrophy. 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 No ventriculomegaly or midline shift. There is intracranial atherosclerosis. No acute intracranial hemorrhage, infarction , mass or mass effect. Paranasal sinuses and mastoids are pneumatized. No depressed skull fractures. IMPRESSION: 1. No acute intracranial abnormality. Reviewed, dictated and finalized at location B.
--- NOTE | 2021-10-09 10:41 | ECG_ITS ---
Measurements Intervals [place] Rate: 48 P: 75 FL: 142 QRS: 55 QRSD: 93 T: 44 QT: 482 QTc: 434 Interpretive Statements SINUS BRADYCARDIA COMPARED TO ECG 12/28/2019 19:55:52 SINUS BRADYCARDIA NOW PRESENT Electronically Signed On 10-09-2021 14:06:58 CDT by Giorgio Cardozo M.D.
[2021-10-09 10:52] LABS: Basophils Percent Auto 0.8 % (0.2-1.2); Eosinophils Absolute Auto 0.1 K/mm3 (0-0.3); Eosinophils Percent Auto 1.4 % (0-4.4); Hematocrit 34.4 % (37.0-47.0); Hemoglobin 10.8 g/dL (12.0-15.0); Immature Granulocyte Absolute 0.02 K/mm3 (0.00-0.031); Immature Granulocyte Percent A 0.4 % (0-0.5); Lymphocytes Absolute Auto 1.31 K/mm3 (0.9-3.2); Lymphocytes Percent Auto 26.1 % (18.3-44.2); Mean Corpuscular HGB Conc 31.4 g/dl (32-36); Mean Corpuscular Hemoglobin 28.7 pg (26-34); Mean Corpuscular Volume 91.5 fl (80-100); Mean Platelet Volume 9.8 fl (7.4-10.4); Monocytes Absolute Auto 0.4 K/mm3 (0.1-0.6); Monocytes Percent Auto 8.4 % (2.6-8.5); Neutrophils Absolute Auto 3.2 K/mm3 (1.3-6.7); Neutrophils Percent Auto 62.9 % (45.5-73.1); Platelet Count Result 258 k/mm3 (150-375); Red Blood Count 3.76 M/mm3 (4.2-5.4); Red Cell Distribution Width 14.8 % (11.5-14.5)
[2021-10-09 11:03] LABS: Prothrombin Time 12.8 Seconds (11.1-14.7)
[2021-10-09 11:04] LABS: Partial Thromboplastin Time 26.5 SECONDS (22.3-36.8)
[2021-10-09 11:05] LABS: Alanine Aminotransferase 12 U/L (6-35); Alkaline Phosphatase 91 U/L (38-126); Anion Gap 4 mmol/L (8-16); Aspartate Amino Transferase 23 U/L (14-36); Bilirubin,Total 0.4 mg/dL (0.2-1.3); Blood Urea Nitrogen 19 mg/dL (7-17); Calcium 8.6 mg/dL (8.4-10.2); Carbon Dioxide 31 mmol/L (22-30); Chloride 105 mmol/L (98-107); Estimated CRCL calculation 35 ml/min; Estimated Glomerular Filt Rate 59; Glucose 81 mg/dL (65-110); Potassium 4.4 mmol/L (3.4-5.0); Sodium 140 mmol/L (137-145)
[2021-10-09 11:05] LABS: Appearance Urine Cloudy (Clear); Bilirubin Urine Negative (Negative); Blood Urine Trace-lysed (Negative); Color Urine Yellow (Yellow); Glucose Urine UA Negative (Negative); Ketones Urine Negative (Negative); Leukocyte Esterase Ur 1+ LEU/UL (Negative); Nitrate Urine Positive (Negative); Protein Urine Negative (Negative); Urobilinogen Urine 0.2 mg/dL (<2.0); pH Urine 6.5 (5.0-9.0)
[2021-10-09 11:06] LABS: Add Urine Microscopic? YES
[2021-10-09 11:16] LABS: Troponin I < 0.012 ng/mL (0.000-0.034)
[2021-10-09 11:21] LABS: Mucus Urine Rare /lpf; Squamous Epithelial Cell Urine Moderate /hpf (Few); WBC Urine 21-30 /hpf
--- NOTE | 2021-10-09 12:01 | ED.DIZZY ---
HPI - Dizziness General Chief Complaint: Dizziness Stated Complaint: cannot walk straight History of Present Illness HPI Narrative: Patient presents emergency department from urgent care for dizziness. Patient states she woke this morning and had gotten up and was walking and she states she kept veering to the left states she knows where she went to walk but she felt lightheaded and will go to the left she denies having any unilateral weakness or numbness she denies having any headaches vision changes chest pain shortness of breath abdominal pain nausea or vomiting. She gone to the urgent care secondary to this was referred to the ER for further evaluation they also noted that she had had a low heart rate at the urgent care patient denies having any chest pain. Patient states that this time she has no dizziness Related Data Allergies Allergy/AdvReac Type Severity Reaction Status Date / Time acetaminophen AdvReac Mild Shakiness Verified 10/09/21 10:39 ibuprofen AdvReac Mild Shakiness Verified 10/09/21 10:39 Review of Systems Review of Systems: Gen.: Denies fevers or chills Eyes: Denies eye pain or visual change ENT: Denies congestion Respiratory: Denies shortness of breath or cough CV: Denies chest pain or palpitations GI: Denies abdominal pain nausea, emesis or diarrhea denies burning, urgency, frequency or hematuria Musculoskeletal: Denies back pain or muscle pain Neuro: See HPI Skin: Denies rash Except as documented, all other systems reviewed and negative PMFSH Past Medical History Medical History History of squamous cell carcinoma Patient denies significant medical history Surgical History Surgical History History of surgical removal of skin lesion Right knee; squamous cell carcinoma per patient Family History Family History Father , sudden at age 84 assumed to be cardiac Acute myocardial infarction Mother , be ceased at age 64 with breast cancer Breast cancer Other Unknown family medical history Social History Social History Social History: Patient lives at home with , Amadeo, whom she designates as surrogate medical decision maker. Her PCP is Dr. Conte. She wishes to be listed as a Full Code Smoking packs per day: 0.25 Smoking cigarettes per day: 5.0 Years smoked: 50 Smoking pack-years: 12.50 Smoking status: Current every day smoker Tobacco type: cigarettes Second hand tobacco smoke exposure: Yes Alcohol intake: current Drinks per week: 2 Substance use: never Gender identity (if verbalized by the patient): Female Sexual Orientation (if Verbalized by the Patient): Straight or Heterosexual Spiritual care concerns: No Exam Narrative: APPEARANCE: No acute distress, nontoxic, resting in bed HEENT: Normocephalic, atraumatic, OMM, TMs clear bilaterally EYES: PERRL, EOMI NECK: Supple, nontender, full range of motion without pain, no meningismus RESPIRATORY: No respiratory distress, clear to auscultation bilaterally with no rhonchi wheezing or rales CARDIOVASCULAR: RRR s murmur ABDOMINAL: Soft, nontender, nondistended MUSCULOSKELETAL: Moves all extremities. No clubbing, cyanosis or edema. NEURO: A and O ?3, following commands, speech normal, cranial nerves II through XII grossly intact,muscle strength 5 out of 5 bilateral upper and lower extremities SKIN:: Warm, dry. Normal Color PSYCHIATRIC: Normal affect/mood Course Course Emergency Course: Reviewed old records Patient will get up and ambulate in the emergency department no difficulty Discussed with patient states she has no history of a low heart rate that she is aware of however old records do show similar heart rates back in December 2019. Called discussed with
== END 2021-10-09 14:55 | disposition home or self-care (01) ==
PROVIDERS: Emergency Provider Emergency Medicine; PCP Physician Assistant
DX: N39.0 Urinary tract infection, site not specified (principal); R42 Dizziness and giddiness; R00.1 Bradycardia, unspecified; F17.210 Nicotine dependence, cigarettes, uncomplicated; Z85.828 Personal history of other malignant neoplasm of skin
CPT/HCPCS: 36415; 70450; 71045; 80053; 81001; 82948; 84443; 84484; 85025; 85610; 85730; 87077; 87086; 87186; 93005; 96365; 99284; J0696

== ENCOUNTER 2022-11-28 20:56 | Inpatient (IN) | payer MEDICARE, SELFPAY ==
--- NOTE | ~2022-11-28 | XR_ITS ---
Portable chest x-ray Comparison: 10/09/2021 Clinical History: Weakness, confusion Findings: Probable biapical scarring. Lungs are otherwise clear. Cardiomediastinal silhouette is st able. Bones and soft tissues are unremarkable. Impression: No acute abnormality seen. Reviewed, dictated and finalized at location . Impression: No acute abnormality seen.
[2022-11-28 21:04] VITALS: BP 149/74; PULSE 81; RESP 16; TEMP 36.9; O2SAT 98
[2022-11-28 22:13] LABS: Basophils Percent Auto 0.4 % (0.2-1.2); Eosinophils Percent Auto 0.1 % (0-4.4); Hematocrit 36.9 % (37.0-47.0); Hemoglobin 11.8 g/dL (12.0-15.0); Immature Granulocyte Absolute 0.03 K/mm3 (0.00-0.031); Immature Granulocyte Percent A 0.4 % (0-0.5); Lymphocytes Absolute Auto 0.72 K/mm3 (0.9-3.2); Lymphocytes Percent Auto 9.1 % (18.3-44.2); Mean Corpuscular Hemoglobin 28.9 pg (26-34); Mean Corpuscular Volume 90.4 fl (80-100); Mean Platelet Volume 9.5 fl (7.4-10.4); Monocytes Absolute Auto 0.5 K/mm3 (0.1-0.6); Monocytes Percent Auto 6.4 % (2.6-8.5); Neutrophils Absolute Auto 6.6 K/mm3 (1.3-6.7); Neutrophils Percent Auto 83.6 % (45.5-73.1); Platelet Count Result 262 k/mm3 (150-375); Red Blood Count 4.08 M/mm3 (4.2-5.4); Red Cell Distribution Width 14.4 % (11.5-14.5); White Blood Count 7.9 K/mm3 (4.5-10.0)
[2022-11-28 22:22] LABS: Alanine Aminotransferase 15 U/L (6-35); Albumin Level 4.4 g/dL (3.5-5.1); Alkaline Phosphatase 102 U/L (38-126); Anion Gap 5 mmol/L (8-16); Aspartate Amino Transferase 23 U/L (14-36); Bilirubin,Total 0.5 mg/dL (0.2-1.3); Blood Urea Nitrogen 24 mg/dL (7-17); Calcium 8.7 mg/dL (8.4-10.2); Carbon Dioxide 26 mmol/L (22-30); Chloride 104 mmol/L (98-107); Estimated CRCL calculation 29 ml/min; Estimated Glomerular Filt Rate 47; Glucose 104 mg/dL (65-110); Lipase 77 U/L (23-300); Potassium 4.2 mmol/L (3.4-5.0); Sodium 135 mmol/L (137-145)
[2022-11-28 23:52] VITALS: BP 128/57; PULSE 73; RESP 15; TEMP 37.3; O2SAT 97
[2022-11-29] VITALS (10 sets, daily range): BP systolic 104–138; BP diastolic 40–91; PULSE 52–72; RESP 16–32; TEMP 36.9–39.2; O2SAT 94–99; BMI 21.5
[2022-11-29] MEDS: SODIUM CHLORIDE 0.9% IV 2,000 ML 999 ML IV CONT (03:58)
[2022-11-29 05:04] LABS: Influenza A QL RT-PCR Negative (Negative); Influenza B QL RT-PCR Negative (Negative); RSV RNA, RT-PCR Negative (Negative); SARS-CoV-2 RNA PCR Negative (Negative)
[2022-11-29 05:19] LABS: Appearance Urine Clear (Clear); Bacteria Urine 4+ /hpf; Bilirubin Urine Negative (Negative); Blood Urine 1+ (Negative); Color Urine Yellow (Yellow); Glucose Urine UA Negative (Negative); Ketones Urine Negative (Negative); Leukocyte Esterase Ur Trace LEU/UL (Negative); Nitrate Urine Positive (Negative); Non Pathogenic Casts 0-2; Protein Urine Negative (Negative); Specific Grav Ur 1.014 (1.001-1.035); Squamous Epithelial Cell Urine Occasional /hpf (Few)
[2022-11-29 05:21] LABS: Add Urine Microscopic? YES
--- NOTE | 2022-11-29 06:31 | ED.GENADULT ---
HPI - General Adult General Chief complaint: Weakness Stated complaint: uti symptoms Time Seen by Provider: 11/29/22 03:29 History of Present Illness HPI narrative: This is an 87-year-old female presenting ED with a chief complaint of weakness. Patient was feeling well today until she had an episode of diarrhea around noon. At that she is feeling lightheaded. She was able to take a nap and felt slightly better but then after dinner attempted to take a shower. While in the shower she became too weak to get out of the shower an ambulance was called. patient denies urinary symptoms but said she had a UTI 2 years ago with similar presentation. Related Data Home Medications Medication Instructions Recorded Confirmed No Home Medications 01/03/22 01/03/22 Allergies Allergy/AdvReac Type Severity Reaction Status Date / Time acetaminophen AdvReac Mild Shakiness Verified 11/29/22 01:14 ibuprofen AdvReac Mild Shakiness Verified 11/29/22 01:14 [facility] Past Medical History Medical History History of squamous cell carcinoma Patient denies significant medical history Rhabdomyolysis Syncope Surgical History Surgical History History of surgical removal of skin lesion Right knee; squamous cell carcinoma per patient Family History Family History Father , sudden at age 84 assumed to be cardiac Acute myocardial infarction Mother , be ceased at age 64 with breast cancer Breast cancer Other Unknown family medical history Social History Social History Social History: Patient lives at home with , Amadeo, whom she designates as surrogate medical decision maker. Her PCP is Dr. Dent [facility], She wishes to be listed as a Full Code Smoking packs per day: 0.25 Smoking cigarettes per day: 5.0 Years smoked: 50 Smoking pack-years: 12.50 Smoking status: Current every day smoker Tobacco type: cigarettes Second hand tobacco smoke exposure: Yes Alcohol intake: current Drinks per week: 1 Substance use: never Lack of Transportation: No Lack of Food: Never True Current Housing: I Have Housing Concerned About Future Housing: No Difficulty Paying Gas/Electric Bills: No Difficulty Paying for Meds: No Currently Unemployed: No Education: High School Diploma/GED Difficulty w/ Childcare or Family Care: No Gender identity (if verbalized by the patient): Female Sexual Orientation (if Verbalized by the Patient): Straight or Heterosexual Spiritual care concerns: No Exam Narrative: APPEARANCE: Frail, appears older than her stated age Head: atraumatic. EYES: EOMI, NOSE: Atraumatic NECK: Trachea midline RESPIRATORY: No increased rate of breathing, clear to auscultation CARDIOVASCULAR: RRR, ABDOMINAL: Non-distended, soft nontender no guarding or rebound, no CVA tenderness MUSCULOSKELETAl: No obvious deformities NEURO: Alert. Moving 4/4 extremities SKIN:: Warm, dry. Normal color PSYCHIATRIC: Normal affect Course Vital Signs Vital signs: Vital Signs Temperature 98.4 F 11/28/22 21:04 Pulse Rate 81 11/28/22 21:04 Respiratory Rate 16 11/28/22 21:04 Blood Pressure 149/74 H 11/28/22 21:04 Pulse Oximetry 98 11/28/22 21:04 Oxygen Delivery Room Air 11/28/22 21:04 Temperature 99.1 F 11/28/22 23:52 Pulse Rate 67 11/29/22 06:56 Respiratory Rate 18 11/29/22 06:56 Blood Pressure 127/62 11/29/22 06:56 Pulse Oximetry 97 11/29/22 06:56 Oxygen Delivery Room Air 11/28/22 21:04 Medical Decision Making MDM Narrative Medical decision making narrative: -Course: 87-year-old female presenting with 1 day of diarrhea and generalized weakness. Workup was significant for urinary tract infection and some dehydration.
--- NOTE | 2022-11-29 08:32 | ADMGEN ---
This patient, Cathy Mcgee, was admitted to [facility] Surg Room 331-01. Patient/family oriented to hospital policies and general routines including ID bracelet, bed and alarms, visiting hours, pain management, procedures, bathroom and other care routines, personal items, smoking policy, room service/diet, and visiting hours. Information on how to activate the Rapid Response Team has been discussed. Patient/Family are encouraged to report perceived risks to care and to ask questions if they do not understand what they are told or what they should do.
[2022-11-29 15:47] LABS: Lactic Acid Reflex 1.1 mmol/L (0.7-2.0)
--- NOTE | 2022-11-29 15:58 | PM.IMHP ---
H&P: HPI History of Present Illness Date/Time: 11/29/22 15:58 Chief Complaint: Weakness Narrative: 87-year-old female presents here with generalized weakness, diarrhea, and urinary frequency with past medical history of squamous cell carcinoma with resection. Patient presents here with generalized weakness for the past 2 days and 1 episode of diarrhea 2 days ago. She denies abdominal pain or pelvic pain. She endorses urinary frequency without dysuria, odor, or blood in her urine. No increased falls. She is currently feeling feverish. Alert and orientated to self, place, time with some confusion on situation. Reports redness to her her cheeks that began 2 days ago with the generalized weakness and is not painful to the touch. she denies any past medical history besides skin cancer. She currently lives at home with her and does not require any assistive devices. Workup in the emergency department revealed a UTI and mild dehydration. Review of Systems Review of Systems: she denies chest pain, shortness of breath, palpitations, chills, nausea, vomiting, recurrent diarrhea. All systems reviewed & are unremarkable except as noted in HPI and below PMFSH Past Medical History Medical History (Updated 11/29/22 @ 23:58 by Irma Pack APRN) History of squamous cell carcinoma Rhabdomyolysis Syncope Surgical History Surgical History History of surgical removal of skin lesion Right knee; squamous cell carcinoma per patient Family History Family History Father , sudden at age 84 assumed to be cardiac Acute myocardial infarction Mother , be ceased at age 64 with breast cancer Breast cancer Social History Social History Social History: Patient lives at home with , Amadeo, whom she designates as surrogate medical decision maker. Her PCP is Dr. Dent Liseth, She wishes to be listed as a Full Code Smoking packs per day: 0.25 Smoking cigarettes per day: 5.0 Years smoked: 70 Smoking pack-years: 17.50 Smoking status: Current every day smoker Tobacco type: cigarettes Second hand tobacco smoke exposure: Yes Alcohol intake: current Drinks per week: 1 Substance use: never Lack of Transportation: No Lack of Food: Never True Current Housing: I Have Housing Concerned About Future Housing: No Difficulty Paying Gas/Electric Bills: No Difficulty Paying for Meds: No Currently Unemployed: No Education: Decline to Answer Difficulty w/ Childcare or Family Care: No Gender identity (if verbalized by the patient): Female Sexual Orientation (if Verbalized by the Patient): Straight or Heterosexual Spiritual care concerns: No Meds Home Medications and Allergies Home Medications Medication Instructions Recorded Confirmed Type No Home Medications 01/03/22 11/29/22 History Allergies Allergy/AdvReac Type Severity Reaction Status Date / Time acetaminophen AdvReac Mild Shakiness Verified 11/29/22 08:41 ibuprofen AdvReac Mild Shakiness Verified 11/29/22 08:41 Vital Signs Vital Signs - 24 hr 11/28/22 21:04 11/28/22 23:52 11/29/22 01:12 Temperature 98.4 F 99.1 F Pulse Rate 81 73 69 Respiratory Rate 16 15 Blood Pressure 149/74 H 128/57 L Pulse Oximetry 98 97 Oxygen Delivery Room Air 11/29/22 01:12 11/29/22 02:11 11/29/22 04:02 Temperature Pulse Rate 70 66 72 Respiratory Rate 20 20 16 Blood Pressure 118/90 109/43 L 131/63 Pulse Oximetry 94 96 98 Oxygen Delivery 11/29/22 05:27 11/29/22 06:56 11/29/22 07:30 Temperature 98.4 F Pulse Rate 63 67 66 Respiratory Rate 21 H 18 18 Blood Pressure 123/91 H 127/62 138/85 Pulse Oximetry 99 97 96 Oxygen Delivery 11/29/22 14:00 Temperature 102.6 F H Pulse Rate 64 Respiratory Rate 32 H Blood
--- NOTE | 2022-11-29 20:05 | PC.NURSE ---
Received call from SNT that pt temp elevated to 102.6. Pt states she does not tolerate tylenol and refuses it despite multiple attempts to educate the need. This RN in another room with a critical pt. Advised the nurse who came down to inform me of repeated refusals to pack her in ice bags. Notified provider. Provider ordered lactic and blood cultures. Attempted to apply ice packs; however, pt only tolerated two packs, one to outer hip. Subsequent temperatures ranged from 100.0-100.5 throughout the rest of shift. Advised pt if temperature elevated above 100.5, that it would be necessary to try the tylenol. Pt reluctantly agreeing at 's encouragement. Pt very confused and at one point tried to get up to make a meal. Right before end of shift, pt had episode of diarrhea. Pt trying to climb out of bed; fecal matter all over pt, bed, floor, chair, etc. After cleaning pt up, provider made aware of diarrhea and pt lack of PO liquid intake. Received new orders as placed.
[2022-11-29] MEDS: LACTATED RINGERS 1,000 ML 50 ML IV CONT (21:25)
[2022-11-29] MEDS: ACETAMINOPHEN 500 MG TABLET PO (21:30)
[2022-11-30 01:21] VITALS: RESP 19; TEMP 36.5
[2022-11-30 04:10] VITALS: BP 126/54; PULSE 54; RESP 17; TEMP 35.7; O2SAT 98
[2022-11-30 06:43] LABS: Basophils Percent Auto 0.6 % (0.2-1.2); Eosinophils Absolute Auto 0.1 K/mm3 (0-0.3); Eosinophils Percent Auto 1.1 % (0-4.4); Hematocrit 32.6 % (37.0-47.0); Hemoglobin 10.3 g/dL (12.0-15.0); Immature Granulocyte Absolute 0.03 K/mm3 (0.00-0.031); Immature Granulocyte Percent A 0.6 % (0-0.5); Lymphocytes Absolute Auto 0.73 K/mm3 (0.9-3.2); Lymphocytes Percent Auto 13.8 % (18.3-44.2); Mean Corpuscular HGB Conc 31.6 g/dl (32-36); Mean Corpuscular Hemoglobin 29.1 pg (26-34); Mean Corpuscular Volume 92.1 fl (80-100); Mean Platelet Volume 9.2 fl (7.4-10.4); Monocytes Absolute Auto 0.5 K/mm3 (0.1-0.6); Monocytes Percent Auto 9.7 % (2.6-8.5); Neutrophils Absolute Auto 3.9 K/mm3 (1.3-6.7); Neutrophils Percent Auto 74.2 % (45.5-73.1); Platelet Count Result 171 k/mm3 (150-375); Red Blood Count 3.54 M/mm3 (4.2-5.4); Red Cell Distribution Width 14.5 % (11.5-14.5); White Blood Count 5.3 K/mm3 (4.5-10.0)
[2022-11-30 07:02] LABS: Alanine Aminotransferase 13 U/L (6-35); Albumin Level 3.1 g/dL (3.5-5.1); Alkaline Phosphatase 72 U/L (38-126); Anion Gap 2 mmol/L (8-16); Aspartate Amino Transferase 20 U/L (14-36); Bilirubin,Total 0.4 mg/dL (0.2-1.3); Blood Urea Nitrogen 15 mg/dL (7-17); Calcium 7.9 mg/dL (8.4-10.2); Carbon Dioxide 25 mmol/L (22-30); Chloride 110 mmol/L (98-107); Estimated CRCL calculation 35 ml/min; Estimated Glomerular Filt Rate 59; Glucose 85 mg/dL (65-110); Potassium 3.8 mmol/L (3.4-5.0); Sodium 137 mmol/L (137-145)
[2022-11-30 08:00] VITALS: BP 123/53; PULSE 105; RESP 17; TEMP 36.8; O2SAT 95
[2022-11-30] MEDS: ENOXAPARIN 30 MG/0.3 ML SYRINGE SUB-Q (08:47)
[2022-11-30] MEDS: LACTATED RINGERS 1,000 ML 50 ML IV CONT (08:47)
--- NOTE | 2022-11-30 11:22 | PM.IMPN ---
Progress Note: A&P Assessment and Plan (1) Acute UTI: Code(s): N39.0 - Urinary tract infection, site not specified Status: Acute Assessment and Plan: 1+ blood, positive nitrates, trace leuks, 3-5 RBC, 11-20 WBC, 4+ bacteria, occasional epithelial cells WBC 7.9 urine culture pending blood cultures drawn creatinine 1.1, prior 0.9 on 10/09/2021 BUN 24, prior 19 on 10/09/2021 given 2L of NS for fluid resuscitation. LR 50mL/hr continued initially, now at 100 mL/hr. ceftriaxone 1G Q24H +Fever - 102.6F, reported allergy to Tylenol. She reports that it makes her feel shaky. Patient amendable to taking, no adverse reaction. Benadryl p.r.n. ordered. zofran PRN for nausea monitor facial erythema/flush - reports started with UTI, appears to correlate with fever. (2) Generalized weakness: Code(s): R53.1 - Weakness Status: Acute Assessment and Plan: viral PCR - negative for influenza, RSV, COVID lactic acid 1.1 large volume diarrhea after patient arrived to floor. patient confused and agitated, did not understand limitations. fall precautions placed. Activity level changed. LR increased to 100 mL/hour. monitor labs: cbc, cmp, mag, phos (3) Gait instability: Code(s): R26.81 - Unsteadiness on feet Status: Acute Assessment and Plan: PT eval and treat OT eval and treat up with assistance to bedside commode Plan Diet: heart healthy GI Prophylaxis: not currently indicated DVT Prophylaxis: SCDs, Lovenox 30 Lines: pIV Code Status: full code Subjective Date/time seen: 11/30/22 11:22 Interval history: 87-year-old female with history of squamous cell carcinoma is presenting with weakness and diarrhea and currently being treated for possible UTI. No overnight events noted. No chest pain or shortness of breath. No nausea, vomiting or diarrhea. No fevers or chills. Eager to go home, still feels quite weak. Review of Systems Review of Systems: 12 point review of systems was assessed and was negative except as noted in the HPI Exam Narrative: General: No acute distress, alert and oriented per baseline HEENT: Atraumatic, normocephalic, mucous membranes moist CV: Regular rate and rhythm, S1, S2 Lungs: Clear to auscultation bilaterally, no rales or crackles noted, no wheezes, good air entry Abdomen: Soft, nontender, nondistended Extremities: Normal to inspection Skin: No rashes noted, no lesions or wounds seen Psych: Euthymic, normal affect Objective Data Vital Signs Vital Signs: Vital Signs - 24 hr 11/29/22 14:00 11/29/22 21:30 11/29/22 20:00 Temperature 102.6 F H 100 F H Pulse Rate 64 Respiratory Rate 32 H Blood Pressure 130/55 L Pulse Oximetry 95 Oxygen Delivery Room Air 11/29/22 22:30 11/29/22 22:00 11/30/22 01:21 Temperature 99 F 99.3 F 97.7 F Pulse Rate 52 L Respiratory Rate 24 H 19 Blood Pressure 104/40 L Pulse Oximetry 96 Oxygen Delivery 11/30/22 04:10 11/30/22 08:00 Temperature 96.3 F L 98.2 F Pulse Rate 54 L 105 H Respiratory Rate 17 17 Blood Pressure 126/54 L 123/53 L Pulse Oximetry 98 95 Oxygen Delivery Intake/Output Intake/Output: Intake & Output 11/27/22 11/28/22 11/29/22 11/30/22 23:59 23:59 23:59 23:59 Intake Total 2890 790 Output Total 400 Balance 2890 390 Meds/Results Medications: Active Medications Generic Name Dose Route Start Last Admin Trade Name Freq PRN Reason Stop Dose Admin Acetaminophen 500 mg 11/29/22 14:39 11/29/22 21:30 Acetaminophen 500 Mg Tablet PO 500 mg Q4H PRN Administration Mild Pain (1-3) or Fever Enoxaparin Sodium 30 mg 11/30/22 09:00 11/30/22 08:47 Enoxaparin 30 Mg/0.3 Ml Syringe SUB-Q 30 mg DAILY WENDY Administration Ceftriaxone Sodium 1 gm in 50 mls @ 100 mls/hr 11/30/22 06:00 11/30/22 05:41 Rocephin 1 Gm/Ns 50 Ml IVPB 12/04/22 06:29 0 mls/hr Q24H WENDY
[2022-11-30 16:00] VITALS: BP 131/51; PULSE 85; RESP 17; TEMP 36.9; O2SAT 99
[2022-11-30 20:55] VITALS: BP 145/67; PULSE 64; RESP 20; TEMP 36.2; O2SAT 97
[2022-12-01 00:42] VITALS: O2SAT 97
[2022-12-01 05:38] VITALS: BP 118/68; PULSE 70; RESP 16; TEMP 36.6; O2SAT 98
[2022-12-01 07:40] LABS: Phosphorus 2.7 mg/dL (2.5-4.5)
[2022-12-01 08:00] VITALS: BP 121/68; PULSE 54; RESP 18; TEMP 36.2; O2SAT 97
[2022-12-01] MEDS: ENOXAPARIN 30 MG/0.3 ML SYRINGE SUB-Q (08:51)
--- NOTE | 2022-12-01 11:18 | PM.DS ---
DS: Admitting Diagnosis Discharge Date 12/01/22 Admitting Diagnosis Weakness DS: Discharge Diagnosis Discharge Diagnosis (1) Acute UTI: Code(s): N39.0 - Urinary tract infection, site not specified Status: Acute Assessment and Plan: 1+ blood, positive nitrates, trace leuks, 3-5 RBC, 11-20 WBC, 4+ bacteria, occasional epithelial cells WBC 7.9 urine culture pending blood cultures drawn creatinine 1.1, prior 0.9 on 10/09/2021 BUN 24, prior 19 on 10/09/2021 given 2L of NS for fluid resuscitation. LR 50mL/hr continued initially, now at 100 mL/hr. ceftriaxone 1G Q24H +Fever - 102.6F, reported allergy to Tylenol. She reports that it makes her feel shaky. Patient amendable to taking, no adverse reaction. Benadryl p.r.n. ordered. zofran PRN for nausea monitor facial erythema/flush - reports started with UTI, appears to correlate with fever. (2) Generalized weakness: Code(s): R53.1 - Weakness Status: Acute Assessment and Plan: viral PCR - negative for influenza, RSV, COVID lactic acid 1.1 large volume diarrhea after patient arrived to floor. patient confused and agitated, did not understand limitations. fall precautions placed. Activity level changed. LR increased to 100 mL/hour. monitor labs: cbc, cmp, mag, phos (3) Gait instability: Code(s): R26.81 - Unsteadiness on feet Status: Acute Assessment and Plan: PT eval and treat OT eval and treat up with assistance to bedside commode Plan Diet: heart healthy GI Prophylaxis: not currently indicated DVT Prophylaxis: SCDs, Lovenox 30 Lines: pIV Code Status: full code DS: Summary Hospital Course Hospital Course: 87-year-old female with history of squamous cell carcinoma is presenting with weakness and diarrhea and currently being treated for possible UTI. Urine culture came back positive for E coli, pansensitive. All symptoms resolved. Patient was discharged in stable condition with close outpatient follow-up and antibiotics. Please see above and med rec for details. Time Spent with Patient Time attestation: Total time spent providing and/or coordinating discharge services: Exam Narrative: General: No acute distress, alert and oriented per baseline HEENT: Atraumatic, normocephalic, mucous membranes moist CV: Regular rate and rhythm, S1, S2 Lungs: Clear to auscultation bilaterally, no rales or crackles noted, no wheezes, good air entry Abdomen: Soft, nontender, nondistended Extremities: Normal to inspection Skin: No rashes noted, no lesions or wounds seen Psych: Euthymic, normal affect DS: Data Data Completed and Pending Labs on day of discharge: Labs from last 24 hours 12/01/22 07:07 Phosphorus 2.7 Magnesium 2.0 Preliminary micro results at discharge 11/29/22 15:10 Blood Culture - Preliminary Blood 11/29/22 14:53 Blood Culture - Preliminary Blood Discharge Plan Discharge Attending physician on discharge: Ayde Gavin Discharging Clinician: Ayde Gavin Patient Disposition: Home, Self-Care Activity: as tolerated Diet: as tolerated Patient Instructions: Antibiotic Form Stand Alone Forms: General Discharge Information Follow-up/Referrals: Olivia Ag PA-C [Primary Care Provider] - Discharge Medications: New amoxicillin-pot clavulanate 875-125 mg tablet 1 tablet PO Q12H 5 Days Qty: 10 0RF No Action No Home Medications Date of admission: 11/30/22 14:25 Primary Care Provider: Olivia Ag Admitting Provider: Giorgio Webb Attending physician on admission: Giorgio Webb Condition: Stable
== END 2022-12-01 13:35 | disposition home or self-care (01) | DRG 690 ==
LOC: ANHED 11-29 07:19 → ANH3MEDSUR 11-29 07:43
PROVIDERS: Student in an Organized Health Care Education/Training Program; Admitting Provider Chiropractor; Emergency Provider Emergency Medicine; PCP Physician Assistant; Visit Provider Student in an Organized Health Care Education/Training Program
DX: N39.0 Urinary tract infection, site not specified (principal); E86.0 Dehydration; R26.81 Unsteadiness on feet; R53.1 Weakness; B96.20 Unspecified Escherichia coli [E. coli] as the cause of diseases classified elsewhere; F17.210 Nicotine dependence, cigarettes, uncomplicated; Z20.822 Contact with and (suspected) exposure to COVID-19
CPT/HCPCS: 36415; 71045; 80053; 81001; 83605; 83690; 83735; 84100; 85025; 87040; 87077; 87086; 87186; 87637; 96361; 96365; 96366; 96372; 97161; 97166; 97530; 99285; A9270; G0378; J0696; J1650; J7030; J7120

== ENCOUNTER 2022-12-19 16:49 | Emergency (ER) | payer MEDICARE, SELFPAY ==
--- NOTE | ~2022-12-19 | XR_ITS ---
EXAMINATION: XR chest 2V Exam Date/Time: 12/19/2022 17:40 CDT HISTORY: cough X's 3 days and feeling weak/smoker Comparison: 11/29/2022. RESULT: Lines, tubes, and devices: None. Lungs and pleura: Emphysematous and senescent change. Cardiomediastinal silhouette: Stable. Hiatal hernia. Other: Moderate height loss and upper thoracic vertebral body. Grade 1 retrolisthesis at T12-L1. No acute upper abdominal finding. IMPRESSION: No acute cardiopulmonary process. Moderate height loss in T2, correlate with pain/tenderness. Grade 1 retrolisthesis at T12-L1. Reviewed, dictated and finalized at location K.
[2022-12-19 17:00] VITALS: BP 130/58; PULSE 88; RESP 16; TEMP 37.2; O2SAT 97
--- NOTE | 2022-12-19 17:03 | ED.FEMALEGU ---
HPI - Female Genitourinary General Chief complaint: Urogenital-Female Stated complaint: Female Urogenital Time Seen by Provider: 12/19/22 17:03 Source: patient Mode of arrival: ambulatory Limitations: no limitations History of Present Illness HPI Narrative: 87-year-old female presents with complaint of generalized weakness, fatigue starting today. Denies URI symptoms. No shortness of breath or chest pain. Denies dizziness. States she is eating and drinking normally. Afebrile, no nausea vomiting diarrhea. Patient reports symptoms are the same that she had last time she was admitted for Bladder infection 5. patient is alert and talkative. No urinary symptoms today, states she did not have urinary symptoms on 11/29. Pt has mild cough that started today. recently had cough and sore throat. all systems reviewed and negative except as noted above. Related Data Allergies Allergy/AdvReac Type Severity Reaction Status Date / Time acetaminophen AdvReac Intermediate Shakiness Verified 12/19/22 16:53 ibuprofen AdvReac Intermediate Shakiness Verified 12/19/22 16:53 Review of Systems Review of Systems: CONSTITUTIONAL: Denies fever, chills, or sweats. Reports fatigue , generalized weakness. EYES: Denies visual changes, redness, or discharge. ENT: Denies rhinorrhea, congestion, sore throat, or otalgia. CARDIOVASCULAR: Denies chest pain, palpitations, or edema. RESPIRATORY: Reports cough. Denies dyspnea. GASTROINTESTINAL: Denies abdominal pain, nausea, vomiting, or diarrhea. GENITOURINARY: Denies dysuria or hematuria. SKIN: Denies rash or itching. MUSCULOSKELETAL: Denies back pain, joint pain, or myalgia. NEUROLOGIC: Denies headache, numbness, or weakness. PSYCHIATRIC: Denies anxiety or depression. All other systems reviewed are negative, except as documented in HPI. [facility] Past Medical History Medical History (Updated 12/19/22 @ 18:11 by Lidia Garcia NP) History of squamous cell carcinoma Rhabdomyolysis Syncope Surgical History Surgical History History of surgical removal of skin lesion Right knee; squamous cell carcinoma per patient Family History Family History (Updated 11/29/22 @ 23:58 by Irma Pack APRN) Father , sudden at age 84 assumed to be cardiac Acute myocardial infarction Mother , be ceased at age 64 with breast cancer Breast cancer Social History Social History Social History: Patient lives at home with , Amadeo, whom she designates as surrogate medical decision maker. Her PCP is Dr. Dent Liseth, She wishes to be listed as a Full Code Smoking packs per day: 0.25 Smoking cigarettes per day: 5.0 Years smoked: 70 Smoking pack-years: 17.50 Smoking status: Current every day smoker Tobacco type: cigarettes Second hand tobacco smoke exposure: Yes Alcohol intake: current Drinks per week: 1 Substance use: never Lack of Transportation: No Lack of Food: Never True Current Housing: I Have Housing Concerned About Future Housing: No Difficulty Paying Gas/Electric Bills: No Difficulty Paying for Meds: No Currently Unemployed: No Education: Decline to Answer Difficulty w/ Childcare or Family Care: No Gender identity (if verbalized by the patient): Female Sexual Orientation (if Verbalized by the Patient): Straight or Heterosexual Spiritual care concerns: No Comments At time of signature, agree with nursing past medical, surgical, social and family history. There is no relevant family history pertinent to the presenting complaint. Exam Narrative: GENERAL: This is a well-nourished, well-developed patient, in no apparent distress. HEAD: normocephalic, atraumatic. EYES: PERRL. Sclera clear/white. Vision is grossly intact. EARS: External ears normal, auditory canals clear and without drainage, TMs
== END 2022-12-19 18:16 | disposition home or self-care (01) ==
PROVIDERS: Emergency Provider Nurse Practitioner Family; PCP Physician Assistant
DX: U07.1 COVID-19 (principal); F17.210 Nicotine dependence, cigarettes, uncomplicated; Z85.828 Personal history of other malignant neoplasm of skin
CPT/HCPCS: 71046; 81003; 87426; 99213; C9803; G0463

== ENCOUNTER 2023-01-22 08:01 | Outpatient (CLI) | payer MEDICARE, SELFPAY ==
[2023-01-22 08:51] LABS: Hemoglobin 11.6 g/dL (12.0-15.0); Mean Corpuscular HGB Conc 30.5 g/dl (32-36); Mean Corpuscular Hemoglobin 27.8 pg (26-34); Mean Corpuscular Volume 90.9 fl (80-100); Mean Platelet Volume 9.9 fl (7.4-10.4); Platelet Count Result 308 k/mm3 (150-375); Red Blood Count 4.18 M/mm3 (4.2-5.4); Red Cell Distribution Width 14.7 % (11.5-14.5)
[2023-01-22 09:05] LABS: Alanine Aminotransferase 10 U/L (6-35); Albumin Level 4.2 g/dL (3.5-5.1); Alkaline Phosphatase 89 U/L (38-126); Anion Gap 5 mmol/L (8-16); Aspartate Amino Transferase 19 U/L (14-36); Bilirubin,Total 0.6 mg/dL (0.2-1.3); Blood Urea Nitrogen 19 mg/dL (7-17); Calcium 9.1 mg/dL (8.4-10.2); Carbon Dioxide 30 mmol/L (22-30); Chloride 105 mmol/L (98-107); Cholesterol 215 mg/dL (0-200); Estimated Glomerular Filt Rate 52; Glucose 88 mg/dL (65-110); HDL Direct 57 mg/dL; Potassium 4.3 mmol/L (3.4-5.0); Sodium 140 mmol/L (137-145); Triglycerides 77 mg/dL (<150)
[2023-01-22 09:16] LABS: LDL Cholesterol Direct 118 mg/dL
[2023-01-22 10:22] LABS: Iron 75 ug/dL (37-170)
[2023-01-22 10:36] LABS: Percent Iron Saturation 21 % (20-50)
== END 2023-01-22 08:02 | disposition home or self-care (01) ==
PROVIDERS: PCP Family Medicine; Visit Provider Physician Assistant
DX: E78.5 Hyperlipidemia, unspecified (principal); Z13.220 Encounter for screening for lipoid disorders; Z13.1 Encounter for screening for diabetes mellitus; D64.9 Anemia, unspecified
CPT/HCPCS: 36415; 80053; 80061; 82728; 83540; 83550; 85027

== ENCOUNTER 2024-03-10 08:00 | Outpatient (CLI) | payer MEDICARE, SELFPAY ==
[2024-03-10 08:23] LABS: Basophils Absolute Auto 0.1 K/mm3 (0.0-0.1); Eosinophils Absolute Auto 0.2 K/mm3 (0-0.3); Eosinophils Percent Auto 2.9 % (0-4.4); Hematocrit 36.1 % (37.0-47.0); Hemoglobin 11.1 g/dL (12.0-15.0); Immature Granulocyte Absolute 0.02 K/mm3 (0.00-0.031); Immature Granulocyte Percent A 0.3 % (0-0.5); Lymphocytes Absolute Auto 2.03 K/mm3 (0.9-3.2); Lymphocytes Percent Auto 32.5 % (18.3-44.2); Mean Corpuscular HGB Conc 30.7 g/dl (32-36); Mean Corpuscular Hemoglobin 27.6 pg (26-34); Mean Corpuscular Volume 89.8 fl (80-100); Mean Platelet Volume 9.3 fl (7.4-10.4); Monocytes Absolute Auto 0.6 K/mm3 (0.1-0.6); Monocytes Percent Auto 9.1 % (2.6-8.5); Neutrophils Absolute Auto 3.4 K/mm3 (1.3-6.7); Neutrophils Percent Auto 54.2 % (45.5-73.1); Platelet Count Result 310 k/mm3 (150-375); Red Blood Count 4.02 M/mm3 (4.2-5.4); Red Cell Distribution Width 14.2 % (11.5-14.5); White Blood Count 6.3 K/mm3 (4.5-10.0)
[2024-03-10 08:36] LABS: Alanine Aminotransferase 10 U/L (6-35); Alkaline Phosphatase 135 U/L (38-126); Anion Gap 5 mmol/L (4-12); Aspartate Amino Transferase 17 U/L (14-36); Bilirubin,Total 0.5 mg/dL (0.2-1.3); Blood Urea Nitrogen 22 mg/dL (7-17); Calcium 8.8 mg/dL (8.4-10.2); Carbon Dioxide 29 mmol/L (22-30); Chloride 107 mmol/L (98-107); Estimated Glomerular Filt Rate 57; Glucose 87 mg/dL (65-110); Potassium 4.3 mmol/L (3.4-5.0); Sodium 141 mmol/L (137-145)
[2024-03-10 16:33] LABS: Iron 77 ug/dL (37-170)
[2024-03-10 16:43] LABS: Percent Iron Saturation 22 % (20-50)
== END 2024-03-10 08:01 | disposition home or self-care (01) ==
PROVIDERS: PCP Family Medicine; Visit Provider Student in an Organized Health Care Education/Training Program
DX: Z00.00 Encounter for general adult medical examination without abnormal findings (principal); Z53.20 Procedure and treatment not carried out because of patient's decision for unspecified reasons; Z13.220 Encounter for screening for lipoid disorders; Z86.39 Personal history of other endocrine, nutritional and metabolic disease
CPT/HCPCS: 36415; 80053; 82728; 83540; 83550; 85025

== ENCOUNTER 2024-04-22 09:08 | Emergency (ER) | payer MEDICARE, SELFPAY ==
[2024-04-22 09:21] VITALS: BP 114/53; PULSE 77; RESP 18; TEMP 36.8; O2SAT 98
--- NOTE | 2024-04-22 09:21 | ED_ITS ---
HPI - General Adult General Chief complaint: Fall Stated complaint: weakness and unstable/fall/jittery Time Seen by Provider: 04/22/24 09:21 Source: patient and family Mode of arrival: ambulatory Limitations: no limitations History of Present Illness HPI narrative: 89 yo F with c/o generalized weakness for 2 days. Reports hx of asymptomatic UTIs. Had urosepsis two years ago. Afebrile. No other symptoms other than weakness. Pt is alert. States she fell last night while getting out of shower. Fell onto her butt . Denies hitting head. States rib muscles hurt from pulling herself off the ground. Pt here with her . All systems reviewed and negative except as noted above. Related Data Allergies Allergy/AdvReac Type Severity Reaction Status Date / Time acetaminophen AdvReac Intermediate Shakiness Verified 04/22/24 09:11 ibuprofen AdvReac Intermediate Shakiness Verified 04/22/24 09:11 Review of Systems Review of Systems: CONSTITUTIONAL: Denies fever, chills, or sweats. Reports generalized weakness , fatigue. EYES: Denies visual changes, redness, or discharge. ENT: Denies rhinorrhea, congestion, sore throat, or otalgia. CARDIOVASCULAR: Denies chest pain, palpitations, or edema. RESPIRATORY: Denies cough or dyspnea. GASTROINTESTINAL: Denies abdominal pain, nausea, vomiting, or diarrhea. GENITOURINARY: Denies dysuria or hematuria. SKIN: Denies rash or itching. MUSCULOSKELETAL: Denies back pain, joint pain, or myalgia. NEUROLOGIC: Denies headache, numbness, or weakness. PSYCHIATRIC: Denies anxiety or depression. All other systems reviewed are negative, except as documented in HPI. [facility] Past Medical History Medical History History of squamous cell carcinoma Rhabdomyolysis Syncope Surgical History Surgical History History of surgical removal of skin lesion Right knee; squamous cell carcinoma per patient Family History Family History Father , sudden at age 84 assumed to be cardiac Acute myocardial infarction Mother , be ceased at age 64 with breast cancer Breast cancer Social History Social History (Reviewed 01/13/24 @ 14:06 by Claudy Leavitt [facility]) Social History: Patient lives at home with , Amadeo, whom she designates as surrogate medical decision maker. Her PCP is Dr. Dent, [facility], She wishes to be listed as a Full Code Smoking packs per day: 0.25 Smoking cigarettes per day: 5.0 Years smoked: 70 Smoking pack-years: 17.50 Smoking status: Current every day smoker Tobacco type: cigarettes (5-6 cigarettes per day) Second hand tobacco smoke exposure: Yes Alcohol intake: current Drinks per week: 1 Substance use: never Lack of Transportation: No Lack of Food: Never True Current Housing: I Have Housing Concerned About Future Housing: No Difficulty Paying Gas/Electric Bills: No Difficulty Paying for Meds: No Currently Unemployed: No Education: Decline to Answer Difficulty w/ Childcare or Family Care: No Gender identity (if verbalized by the patient): Female Sexual Orientation (if Verbalized by the Patient): Straight or Heterosexual Spiritual care concerns: No Comments At time of signature, agree with nursing past medical, surgical, social and family history. There is no relevant family history pertinent to the presenting complaint. Exam Narrative: GENERAL: This is a well-nourished, well-developed patient, in no apparent distress. HEAD: normocephalic, atraumatic. EYES: PERRL. Sclera clear/white. Vision is grossly intact. EARS: External ears normal NOSE: External nose normal NECK: Neck supple, non-tender without lymphadenopathy, masses or thyromegaly. CARDIOVASCULAR: Regular rate and rhythm without murmurs, gallops, or rubs. RESPIRATORY: Clear to auscultation. Breath sounds equal bilaterally. No wheezes, rales, or rhonchi. SKIN: warm, Dry, intact with no suspicious lesions or rash, good texture and turgor. NEURO: awake, alert, and oriented to person, place and time. There were no obvious focal neurologic abnormalities. EXTREMITIES: No joint tenderness, effusion, or edema noted. BACK: no CVA tenderness Course Course Level of Care: Express Care Visit Vital Signs Vital signs: Vital Signs Temperature 36.8 C 04/22/24 09:21 Pulse Rate 77 04/22/24 09:21 Respiratory Rate 18 04/22/24 09:21 Blood Pressure 114/53 L 02/26/25 09:21 Pulse Oximetry 98 04/22/24 09:21 Oxygen Delivery Room Air 04/22/24 09:21 Temperature 36.8 C 04/22/24 09:21 Pulse Rate 77 04/22/24 09:21 Respiratory Rate 18 04/22/24 09:21 Blood Pressure 114/53 L 04/22/24 09:21 Pulse Oximetry 98 04/22/24 09:21 Oxygen Delivery Room Air 04/22/24 09:21 reviewed Medical Decision Making MDM Narrative Medical decision making narrative: urinalysis positive nitrites, 2+ blood, 2+ protein, 2+ leukocytes. Will treat with antibiotic. Urine culture ordered. Patient is hemodynamically stable. No concerns for sepsis I am. Patient is alert and talkative. Patient is refusing x-rays of ribs, tailbone. Reports they are sore but if she is not concerned for fracture. Patient did not fall and hit her ribs, she is stating that her muscles are sore from pulling herself from fall. Patient wants antibiotic and wants to go home. Will monitor her symptoms. Please be advised this is a medical document. It is intended for umto-wa-afaj communication. It is written in medical language and may contain unfamiliar abbreviations or verbiage. Medical documents are intended to carry relevant information, facts as evident, and the clinical opinion of the practitioner at the time of the encounter. This report may have been done utilizing a voice recognition system. Attempts have been made to correct errors. However, there may be uncorrected grammatical, spelling, and recognition errors present. The file time of this note does not necessarily represent the time of service. Vital Signs Vital Signs: Vital Signs Temperature 36.8 C 04/22/24 09:21 Pulse Rate 77 04/22/24 09:21 Respiratory Rate 18 04/22/24 09:21 Blood Pressure 114/53 L 04/22/24 09:21 Pulse Oximetry 98 04/22/24 09:21 Oxygen Delivery Room Air 04/22/24 09:21 Temperature 36.8 C 04/22/24 09:21 Pulse Rate 77 04/22/24 09:21 Respiratory Rate 18 04/22/24 09:21 Blood Pressure 114/53 L 04/22/24 09:21 Pulse Oximetry 98 04/22/24 09:21 Oxygen Delivery Room Air 04/22/24 09:21 Lab Data Labs: Lab Results 04/22/24 Range/Units 09:39 POC Urine Color Yellow POC Urine Clarity Clear POC Urine pH 5.5 POC Ur Specif Anthon 1.025 POC Urine Protein 2+ (Negative) POC Ur Glucose (UA) Negative (Negative) POC Urine Ketones Negative (Negative) POC Urine Blood 2+ (Negative) POC Urine Nitrite Positive (Negative) POC Urine Bilirubin Negative (Negative) POC Urine Urobilinogen 0.2 POC U Leukocyte Esteras 2+ (Negative) Discharge Plan Discharge Clinical Impression: Urinary tract infection Qualifiers: Urinary tract infection type: site unspecified Hematuria presence: with hematuria Qualified Code(s): N39.0 - Urinary tract infection, site not specified Patient Disposition: Home, Self-Care Condition: Stable Instructions: Antibiotic Form, Urinary Tract Infection in Women (ED) Additional Instructions: take antibiotic as prescribed to treat urinary tract infection. Drink at least 64 oz of water a day. Walk with a cane or walker until generalized weakness improved. Follow-up with your primary care physician if symptoms are not improving. If you have severe pain, fever, vomiting go to the ER. Patient Language: Venezuelan Prescriptions: New amoxicillin-pot clavulanate [Augmentin] 500-125 mg tablet 1 tablet PO BID 7 Days Qty: 14 0RF No Action ferrous sulfate 325 mg (65 mg iron) tablet 325 mg PO DAILY Qty: 30 3RF Follow-up/Referrals: Chandni Dent MD [Primary Care Provider] - Time of Disposition: 09:44
[2024-04-22 09:44] LABS: EDUAAPPEAR Clear; EDUABILI Negative (Negative); EDUABLOOD 2+ (Negative); EDUACOLOR1 Yellow; EDUAGLUCOSE Negative (Negative); EDUAKETONE Negative (Negative); EDUALEUKO 2+ (Negative); EDUANITRATE Positive (Negative); EDUAPH 5.5; EDUAPROTEIN 2+ (Negative); EDUASPGRAVITY 1.025; EDUAUROBILI 0.2
--- OUTSIDE RECORDS SUMMARY | 2024-04-22 09:50 | XMS_ITS | Continuity of Care Document ---
Author Organization [facility] Address [address] [place] [address] Phone Care Team Providers Care Social Security Benefits Interviewer Name Role Phone Raoul Smith Unavailable Unavailable Procedures Procedure Date Post-op Follow-up Visit Post-op Follow-up Visit Remove Cataract, Insert Lens Office/outpatient Visit, Est IOLMaster-Professional Post-op Follow-up Visit Post-op Follow-up Visit Remove Cataract, Insert Lens Office Consultation IOLMaster Visual Functional Status Assessed Advance Directives Directive Yes / No Effective Date File Name No Information Encounters Encounter Description Practice Location Reason(s) For Visit Diagnoses Date Provider Providers Copied on Encounter [facility], [id number] [place] [address] [address], [place], [place], [id number], [place] tel:[phone] [facility] No Information [address]. [address] [facility] [address] , [address], [place], [address], [place]. tel:[phone] Referring Provider: Jovani Lees OD, [address], [address]. tel:[phone] [facility], [address], [place], [place], [address], tel:[phone] [facility] No Information Nov- 5-200 8 Do[address] Edward. [address] , [address], [place], [place], [facility], [place]. tel:[phone] Referring Provider: Jovani Lees OD, [address], [address]. tel:[phone] [facility], [address], [place], [place], [address], [place] tel:[phone] [facility] No Information [address]. [address] , [address], [place], [place], [facility], [place]. tel:[phone] Referring Provider: Jovani Lees OD, [address], [facility]. tel:[phone] Office/outpati ent Visit, [facility] [address], [place], [place], [address], [place] tel:[phone] [facility] No Information [address]. [address] [facility] [address] , [address], [place], [place], [facility], [place]. tel:[phone] Referring Provider: Jovani Lees OD, [address], [facility]. tel:[phone] [facility], [address], [place], [place], [address], [place] tel:[phone] [facility] No Information 0 [address]. [address] , [address], [place], [facility], [place]. tel:[phone] Referring Provider: Jovani Lees OD, [address], [facility]. tel:[phone] [facility], [address], [place], [place], [address], tel:[phone] [facility] No Information 8 [facility] [place]. [address] , [address], [place], [facility], . tel:[phone] Referring Provider: Jovani Lees OD, [address], [address]. tel:[phone] [facility], [address] [place] [address] [address], [place], [place], [address], tel:[phone] [facility] No Information 8 [address]. [address] [facility] , [address], [place], [facility], . tel:[phone] Referring Provider: Jovani Lees OD, [address], [facility]. tel:[phone] Office Consultation [facility], [address] [place] [address] [address], [place], [place], [address], tel:[phone] [facility] No Information 8 Tanishajosé Raoul. [facility] , [address], [place], [facility], . tel:[phone] Referring Provider: Jovani Lees OD, [address], [facility]. tel:[phone] Family History Family Member Type Diagnosis Age At Onset No Information Payers Payer name Insurance type Covered green party ID Authoriza tion(s) No Information Social History Type Description Quantity Date Captured Comments Sex Female Smoking Status No Information Chief Complaint And Reason For Visit No Information Reason For Referral Reason For Referral No Information History Of Present Illness Encounter Date Complaint History Of Prese nt Illness No Information Functional Status Date Functional Assessmen t No Information Instructions Date Instruction Additional Infor mation No Information Assessments Type Assessment Date No Information Patient Care Teams Name Effective Dates (start - stop) Status Members No Information
--- OUTSIDE RECORDS SUMMARY | 2024-04-22 09:50 | XMS_ITS | Clinical Summary ---
Author Organization [facility] Address [address] [place] [address] Care Team Providers Care Garde Manger Name Role Phone Unavailable Primary Care Provider Unavailabl e Immunizations Immunization Administration Dates Next Due Covid-19, Mrna, Lnp-s, Pf, 30 Mcg/0.3 Ml Dose (P fizer) 12/11/2020 Social History Tobacco Use Types Packs/Day Years Used Date Smoking Tobacco: Never Assessed Comments Unknown Sex and Gender Information Value Date Recorded Sex Assigned at Not on file Legal Sex Female 4:18 PM CDT Gender Identity Not on file Sexual Orientation Not on file Plan of Treatment Health Maintenance Due Date Last Done Comments DEXA Bone Density 1935 Hepatitis C Virus (HCV) Screening 1935 TdaP Immunization 1935 Zoster Immunization (1 of 2) 1985 Respiratory Syncytial Virus (RSV) Immunization (Adult) (1 - 1-dose 75+ series) 2010 Pneumococcal Immunization (50+ years) (2 of 2 - PPSV23) 08/10/2015 08/09/2014 Influenza Immunization (#1) 2023 09/0 03/2020, 11/13/2019, 11/14/2018, Additional history exists SARS-COV-2 Immunization ( season) 2023 12/11/2020, 05/15/2020, 04/24/2020 Hepatitis B Immunization Aged Out No longer eligible based on patient's age to complete this topic Meningococcal Immunization (ACWY) Aged Out No longer eligible based on patient's age to complete this topic Rotavirus Immunization Aged Out No lo nger eligible based on patient's age to complete this topic
--- OUTSIDE RECORDS SUMMARY | 2024-04-22 09:57 | XMS_ITS | Continuity of Care Document ---
Author Organization [facility] Address [address] [place] [address] Phone Care Team Providers Care Coke Crusher Operator Name Role Phone Raoul Smith Unavailable Unavailable [...] Diagnoses Date Provider Providers Copied on Encounter [facility], [address] [place] [address] [address], [place], [place], [address], [place] tel:[phone] [facility] No Information [address] [facility] [address] , [address], [place], [address], [place]. tel:[phone] Referring Provider: Jovani Lees OD, [address], [address]. tel:[phone] [facility], [address], [place], [place], [address], tel:[phone] [facility] No Information Nov- 5-200 8 [address]. [address] , [address], [place], [place], [facility], [place]. tel:[phone] Referring Provider: Jovani Lees OD, [address], [address]. tel:[phone] [facility], [address], [place], [place], [address], [place] tel:[phone] [facility]Count includes the [facility] No Information [address]. [address] , [address], [place], [facility], [place]. tel:[phone] Referring Provider: Jovani Lees OD, [address], [facility]. tel:[phone] Office/outpati ent Visit, [facility], [address], [place], [place], [address], [place] tel:[phone] [facility] No Information [address] [facility] , [address], [place], [facility], [place]. tel:[phone] Referring Provider: Jovani Lees OD, [address], [facility]. tel:[phone] [facility], [address], [place], [place], [address], [place] tel:[phone] [facility] No Information 0 [address]. [address] , [address], [place], [facility], [place]. tel:[phone] Referring Provider: Jovani Lees OD, [address], [facility]. tel:[phone] [facility], [address], [place], [place], [address], tel:[phone] [facility] No Information 8 [facility] [place]. [address] [facility] [address] , [address], [place], [facility], . tel:[phone] Referring Provider: Jovani Lees OD, [address], [address]. tel:[phone] [facility], [address] [place] [address] [address], [place], [place], [address], tel:[phone] [facility] the [facility] No Information [address]. [address] [facility] , [address], [place], [facility], . tel:[phone] Referring Provider: Jovani Lese OD, [address], [facility]. tel:[phone] Office Consultation [facility], [address] [place] [address] [address], [place], [place], [address], tel:[phone] [facility] No Information 8 Tanish[address]osé Raoul. [facility] , [address], [place], [facility], . tel:[phone] Referring Provider: Jovani Lees OD, [address], [facility]. tel:[phone] Family History Family Member Type Diagnosis Age At Onset No Information Payers Payer name Insurance type Covered constitution party ID Authoriza tion(s) No Information Social [...]
== END 2024-04-22 09:46 | disposition home or self-care (01) ==
PROVIDERS: Emergency Provider Nurse Practitioner Family; PCP Family Medicine
DX: N39.0 Urinary tract infection, site not specified (principal); B96.1 Klebsiella pneumoniae [K. pneumoniae] as the cause of diseases classified elsewhere; M62.82 Rhabdomyolysis; F17.210 Nicotine dependence, cigarettes, uncomplicated; Z85.828 Personal history of other malignant neoplasm of skin
CPT/HCPCS: 81003; 87077; 87086; 87186; 99213; G0463

== ENCOUNTER 2024-09-12 08:43 | Emergency (ER) | payer MEDICARE, SELFPAY ==
--- OUTSIDE RECORDS SUMMARY | 2024-09-12 08:45 | XMS_ITS | Clinical Summary ---
Author Organization [facility] Address [address] [place] [address] Care Team Providers Care Pacs Administrator Name Role Phone Unavailable Primary Care Provider [...] Health Maintenance Due Date Last Done Comments Hepatitis C Virus (HCV) Screening 1935 TdaP Immunization 1935 Zoster Immunization (1 of 2) 1985 Respiratory Syncytial Virus (RSV) Immunization (Adult) (1 - 1-dose 75+ series) 2010 Pneumococcal Immunization (50+ years) (2 of 2 - PPSV23) 08/10/2015 08/09/2014 SARS-COV-2 Immunization ( season) 2023 12/11/2020, 05/15/2020, 04/24/2020 Influenza Immunization (#1) 2024 09/0 03/2020, 11/13/2019, 11/14/2018, Additional history exists Hepatitis B Immunization Aged Out No longer eligible based on patient's age to complete this topic Human Papillomavirus (HPV) Immunization Aged Out No longer eligible based on patient's age to complete this topic Meningococcal Immunization (ACWY) Aged Out No longer eligible based on patient's age to complete this topic Rotavirus Immunization Aged Out No lo nger eligible based on patient's age to complete this topic
--- OUTSIDE RECORDS SUMMARY | 2024-09-12 08:45 | XMS_ITS | Continuity of Care Document ---
Author Organization [facility] Address [address] [place] [address] Phone Care Team Providers Care Malt House Operator Name Role Phone Raoul Smith Unavailable [...] Diagnoses Date Provider Providers Copied on Encounter [facility], [id number] [place] [address] [address], [place], [place], [id number], [place] tel:[phone] SEC [facility] No Information 3[address]. [address] [facility] [place] , [address], [place], [address], [place]. tel:[phone] Referring Provider: Jovani Lees OD, [address], [address]. tel:[phone] [facility], [address], [place], [place], [id number], tel:[phone] SEC [facility] No Information Nov- 5-200 8 Doisy Edward. [address] , [address], [place], [place], [facility], [place]. tel:[phone] Referring Provider: Jovani Lees OD, [address], [address]. tel:[phone] [facility], [address], [place], [place], [address], [place] tel:[phone] [facility] No Information 200 [address]. [address] , [address], [place], [facility], [place]. tel:[phone] Referring Provider: Jovani Lees OD, [address], [facility]. tel:[phone] Office/outpati ent Visit, [facility], [address], [place], [place], [address], [place] tel:[phone] [facility] No Information 200 [address]. [address] [facility] , [address], [place], [facility], [place]. tel:[phone] Referring Provider: Jovani Lees OD, [address], [address]. tel:[phone] [facility], [address], [place], [place], [id number], [place] tel:[phone] [facility] No Information 0 200 8 [address]. [address] , [address], [place], [facility], [place]. tel:[phone] Referring Provider: Jovani Lees OD, [address], [facility]. tel:[phone] [facility], [address], [place], [place], [id number], tel:[phone] [facility] No Information 8 [facility] [place]. [address] [facility] [place] , [address], [place], [facility], . tel:[phone] Referring Provider: Jovani Lees OD, [address], [address]. tel:[phone] [facility], [address] [place] [address] [address], [place], [place], [address], tel:[phone] [facility] No Information 8 Luis Silveira. [address] [facility] , [address], [place], [facility], . tel:[phone] Referring Provider: Jovani Lees OD, [address], [facility]. tel:[phone] Office Consultation [facility], [address] [place] [address] [address], [place], [place], [address], tel:[phone] [facility] No Information 8 Tanishajosé Raoul. [facility] , [address], [place], [facility], . tel:[phone] Referring Provider: Jovani Lees OD, [address], [facility]. tel:[phone] Family History Family Member Type Diagnosis Age [...]
--- NOTE | 2024-09-12 08:46 | ECG_ITS ---
Test Date: 2024-09-12 08:55:37 Measurements Intervals [place] Rate: 60 P: 71 NC: 139 QRS: 26 QRSD: 93 T: 18 QT: 447 QTc: 449 Interpretive Statements SINUS RHYTHM WITH SINUS ARRHYTHMIA WITHIN NORMAL LIMITS No previous ECG available for comparison Electronically Signed On 09-12-2024 08:59:02 CDT by Giorgio Cardozo M.D.
--- NOTE | 2024-09-12 08:46 | ED.DIZZY ---
HPI - Dizziness General Chief Complaint: Dizziness Stated Complaint: dizziness/light-headed/jittery Time Seen by Provider: 09/12/24 08:46 Source: patient Mode of arrival: ambulatory Limitations: no limitations History of Present Illness HPI Narrative: Cathy is a an 89-year-old female patient presenting to the clinic today with complaints of dizziness, lightheadedness, and feeling jittery. States symptoms started this morning when she woke up around [id number]. Took a baby ASA. Feels as though she is severely unsteady on her feet. When she has had these symptoms before she has had a UTI. Dizziness has improved since this morning but she still has some dizziness. Denies any headache, chest pain, sob, or visual changes. Has not fallen. Related Data Allergies Allergy/AdvReac Type Severity Reaction Status Date / Time acetaminophen AdvReac Intermediate Shakiness Verified 09/12/24 09:22 ibuprofen AdvReac Intermediate Shakiness Verified 09/12/24 09:22 Review of Systems Review of Systems: Pertinent positives per HPI. Patient denies any fever, chills, rash, headache, visual changes, cough, runny nose, sore throat, shortness of breath, chest pain, palpitations, nausea, vomiting, diarrhea, constipation, abdominal pain, or any urinary issues. [facility] Past Medical History Medical History Rhabdomyolysis Syncope History of squamous cell carcinoma Surgical History Surgical History History of surgical removal of skin lesion Right knee; squamous cell carcinoma per patient Family History Family History Father , sudden at age 84 assumed to be cardiac Acute myocardial infarction Mother , be ceased at age 64 with breast cancer Breast cancer Social History Social History Social History: Patient lives at home with , Amadeo, whom she designates as surrogate medical decision maker. Her PCP is Dr. Dent iLseth, She wishes to be listed as a Full Code Smoking packs per day: 0.25 Smoking cigarettes per day: 5.0 Years smoked: 70 Smoking pack-years: 17.50 Smoking status: Current every day smoker Tobacco type: cigarettes (5-6 cigarettes per day) Second hand tobacco smoke exposure: Yes Alcohol intake: current Drinks per week: 1 Substance use: never Lack of Transportation: No Lack of Food: Never True Current Housing: I Have Housing Concerned About Future Housing: No Difficulty Paying Gas/Electric Bills: No Difficulty Paying for Meds: No Currently Unemployed: No Education: Decline to Answer Difficulty w/ Childcare or Family Care: No Gender identity (if verbalized by the patient): Female Sexual Orientation (if Verbalized by the Patient): Straight or Heterosexual Spiritual care concerns: No Comments At the time of my signature, I reviewed and agree with the nursing past medical, surgical, social, and family history. There is no relevant family history pertinent to the patient complaint. Exam Narrative: General: Well-developed, well nourished, in no apparent distress Head: Normocephalic, atraumatic Eyes: Pupils equally round and reactive to light bilaterally, EOM intact, sclera and conjunctive clear, no discharge, lids normal Ears: TMs intact and clear, ear canals clear, no drainage, grossly hearing normal. Nose: Nares patent, no discharge, no inflammation, no sinus tenderness. Mouth: Oropharynx without lesions or masses, good dentition, MMM. Tongue midline, even rise and fall of uvula Neck: Supple, trachea midline, no enlargement of anterior or posterior cervical nodes, no thyroid masses or goiter palpable. Cardio: Regular rate and rhythm, s1 and s2 normal, no murmur appreciated. Resp: Clear to auscultation bilaterally anteriorly and posteriorly, no rhonchi, rales, wheezing or rubs Musculoskeletal: No deformity, non-tender to palpation, grossly normal range of motion, muscle strength strong and equal, peripheral pulse strong, no edema, no cyanosis, steady gait and station with close observation Neuro: Alert and oriented x4 with normal speech, no focal deficits, cranial nerves I through XII intact, muscle strength 5 out of 5, sensation intact bilaterally, Course Course Emergency Course: Portions of this record may have been created with voice recognition software. Level of Care: Express Care Visit Vital Signs Vital signs: Vital Signs Pulse Rate 63 09/12/24 09:01 Temperature 36.2 C L 09/12/24 09:03 Pulse Rate 63 09/12/24 09:03 Respiratory Rate 18 09/12/24 09:03 Blood Pressure 152/58 H 09/12/24 09:03 Pulse Oximetry 99 09/12/24 09:03 Oxygen Delivery Room Air 09/12/24 09:03 Vital signs reviewed MDM - Dizziness MDM Narrative Medical decision making narrative: At the time of visit patient is resting comfortably on the exam table. Patient appears to be nontoxic. Patient is reporting sudden onset of dizziness, lightheadedness, and jitteriness that started this morning when she woke up. Feels unsteady on her feet. Denies any headache, chest pain, shortness of breath, or visual changes. No stroke-like symptoms. History of frequent UTIs and anemia. No history of diabetes. Lung sounds are clear. Neuro exam is normal. EKG, urine dip, bedside glucose, and orthostatic blood pressures were ordered. EKG: EKG shows sinus rhythm with sinus arrhythmia with a heart rate of 60 beats per minute without ST elevation or depression. No T-wave inversion. Unable to review any old EKGs Labs: Urine positive for 3+ leukocytes, nitrate, protein, and blood. We will send urine for culture. Blood sugar was 116 Orthostatic blood pressures: Lying blood pressure was 137/64 with heart rate of 55, sitting blood pressure 125/73 with a heart rate of 65, standing blood pressure 152/50 with a heart rate of 63 Plan: I suspect patient has dizziness likely due to UTI. Patient reporting her dizziness has improved throughout this morning. Prescription for Augmentin was sent to the pharmacy. Supportive measures were discussed with the patient and they voiced understanding discharge instructions and agrees to treatment plan. Return precautions reviewed Differential Diagnosis Differential diagnosis: Likely benign paroxysmal positional vertigo, orthostatic hypotension, vertebral basilar insufficiency, cerebrovascular accident, acute vestibular neuronitis, transient cerebral ischemia and other (hypoglycemia, hyperglycemia, thyroid disorder, anxiety, anemia, WA, UTI) Lab Data Labs: Lab Results 09/12/24 09/12/24 Range/Units 08:57 09:32 POC Capillary Glucose 116 H (65-105) mg/dl POC Urine Color Yellow POC Urine Clarity Cloudy POC Urine pH 6.0 POC Ur Specif Mcleod 1.020 POC Urine Protein 1+ (Negative) POC Ur Glucose (UA) Negative (Negative) POC Urine Ketones Negative (Negative) POC Urine Blood 1+ (Negative) POC Urine Nitrite Positive (Negative) POC Urine Bilirubin Negative (Negative) POC Urine Urobilinogen 0.2 POC U Leukocyte Esteras 3+ (Negative) ECG Data EKG #1: Attestation: I personally reviewed and interpreted this ECG as follows: ECG completion date: 09/12/24 ECG completion time: 08:55 Prior ECG tracings: not available for review Interpretation: EKG shows sinus rhythm with sinus arrhythmia with a heart rate of 60 beats per minute without any ST elevation or depression. No T-wave inversion. WA interval is 139 milliseconds, QRS durations 93 milliseconds, QT-QTC is 447-448 milliseconds, P-R-T axis is 71 26 18 Discharge Plan Discharge Clinical Impression: Dizziness UTI (urinary tract infection) Qualifiers: Urinary tract infection type: acute cystitis Hematuria presence: with hematuria Qualified Code(s): N30.01 - Acute cystitis with hematuria Patient Disposition: Home Condition: Stable Instructions: Antibiotic Form, Dizziness (ED), Urinary Tract Infection in Older Adults (ED) Additional Instructions: Orthostatic blood pressures within normal limits. EKG shows sinus rhythm with sinus arrhythmia heart rate 60 beats per minute Bedside glucose was 116 Urinalysis positive for 3+ leukocytes, nitrates, 1+ protein and 1+ blood. We will send urine for culture Take Augmentin as prescribed Increase fluids and stay well hydrated Wipe front to back. May use wet wipes. Avoid tub baths If sexually active- pee before and after intercourse. Wear cotton panties Avoid tight clothing up against the genitals Follow up with your PCP in 1 week if symptoms persist. Patient Language: [place] Prescriptions: New amoxicillin-pot clavulanate 875-125 mg tablet 1 tablet PO Q12H 7 Days Qty: 14 0RF Follow-up/Referrals: Chandni Dent MD [Primary Care Provider] - Time of Disposition: 09:49 Quality NIHSS Nursing Documentation ED NIHSS nursing documentation: reviewed/agree
--- OUTSIDE RECORDS SUMMARY | 2024-09-12 08:50 | XMS_ITS | Continuity of Care Document ---
Author Organization [facility] Address [address] [place] [address] Phone Care Team Providers Care City Planning Engineer Name Role Phone Raoul Smith Unavailable Unavailable [...] Diagnoses Date Provider Providers Copied on Encounter [facility], [address] [place] [address] [address], [place], [place], [address], [place] tel:[phone] SEC [facility] No Information 3[address]. [address] [facility] [place] , [address], [place], [address], [place]. tel:[phone] Referring Provider: Jovani Lees OD, [address], [address]. tel:[phone] [facility], [address], [place], [place], [address], tel:[phone] SEC [facility] No Information Nov- 5-200 8 Doisy Edward. [address] , [address], [place], [facility], [place]. tel:[phone] Referring Provider: Jovani Lees OD, [address], [address]. tel:[phone] [facility], [address], [place], [place], [address], [place] tel:[phone] [facility] No Information 200 [address]. [address] , [address], [place], [facility], [place]. tel:[phone] Referring Provider: Jovani Lees OD, [address], [facility]. tel:[phone] Office/outpati ent Visit, [facility], [address], [place], [place], [address], [place] tel:[phone] [facility] No Information 200 [address]. [address] [facility] [address] , [address], [place], [facility], [place]. tel:[phone] Referring Provider: Jovani Lees OD, [address], [address]. tel:[phone] [facility], [address], [place], [place], [address], [place] tel:[phone] [facility] No Information 0 200 8 [address] Edward. [address] , [address], [place], [facility], [place]. tel:[phone] Referring Provider: Jovani Lees OD, [address], [facility]. tel:[phone] [facility], [address], [place], [place], [id number], tel:[phone] [facility] No Information 8 [facility] [place]. [address] [facility] [place] , [address], [place], [facility], . tel:[phone] Referring Provider: Jovani Lees OD, [address], [address]. tel:[phone] [facility], [address] [place] [address] [address], [place], [place], [address], tel:[phone] [facility] No Information 8 [address] Silveira. [address] [facility] , [address], [place], [facility], . tel:[phone] Referring Provider: Jovani Lees OD, [address], [facility]. tel:[phone] Office Consultation [facility], [address] [place] [address] [address], [place], [place], [address], tel:[phone] [facility] No Information 8 Tanishajosé Raoul. [facility] , [address], [place], [facility], . tel:[phone] Referring Provider: Jovani Lees OD, [address], [facility]. tel:[phone] Family History Family Member Type Diagnosis Age At Onset No Information Payers Payer name Insurance type Covered alliance party ID Authoriza tion(s) No Information Social [...]
[2024-09-12 09:01] VITALS: PULSE 63
[2024-09-12 09:02] VITALS: BP 125/73; BP 137/64; PULSE 55; PULSE 65
[2024-09-12 09:03] VITALS: BP 152/58; PULSE 63; RESP 18; TEMP 36.2; O2SAT 99
[2024-09-12 09:34] LABS: EDUAAPPEAR Cloudy; EDUABILI Negative (Negative); EDUABLOOD 1+ (Negative); EDUACOLOR1 Yellow; EDUAGLUCOSE Negative (Negative); EDUAKETONE Negative (Negative); EDUALEUKO 3+ (Negative); EDUANITRATE Positive (Negative); EDUAPH 6.0; EDUAPROTEIN 1+ (Negative); EDUASPGRAVITY 1.020; EDUAUROBILI 0.2
== END 2024-09-12 09:53 | disposition home or self-care (01) ==
PROVIDERS: Emergency Provider Nurse Practitioner Family; PCP Family Medicine
DX: R42 Dizziness and giddiness (principal); N30.01 Acute cystitis with hematuria; F17.210 Nicotine dependence, cigarettes, uncomplicated; M62.82 Rhabdomyolysis; Z85.828 Personal history of other malignant neoplasm of skin
CPT/HCPCS: 81003; 82948; 93005; 99213; G0463